=== PATIENT | female | born 1980 | race Caucasian/White ===

== ENCOUNTER 2023-11-06 00:48 | Inpatient (IN) | payer OTHER, SELFPAY ==
[2023-11-05 22:33] VITALS: BP 176/75
--- NOTE | 2023-11-05 22:40 | ED.GENMED ---
History of Present Illness
General
Chief Complaint: Skin Problem
Source: patient, records and ambulance crew
Exam Limitations: none
Time Seen by Provider: 11/05/23 22:31
Nursing documentation reviewed up to this point in time: agreed with
History of Present Illness
History of Present Illness:
43-year-old female with a past medical history as documented notable for significant vascular disease, diabetes and neuropathy, bilateral AKA who presents to the emergency department for evaluation of right stump redness and swelling. Patient
reports symptoms have been ongoing for the past 2 to 3 days. She says that tonight she was having increased pain particularly with putting weight on her right stump to pivot into the shower and finally decided to come to the emergency room to be
assessed. She says she has had identical symptoms with cellulitis in the past. She has had a poor appetite and mild nausea. No vomiting. She denies any fevers or chills. She denies any trauma. She denies any other complaints today.
Past History
Past History
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
ED Past Surgical History: Other (Left AKA, right AKA, multiple vascular interventions)
Social History
Tobacco: Smoker
Alcohol: None
Drug: None
Personal: Single
Living: alone
Employment: Disabled
Family History
Family History: Other (reviewed and noncontributory)
Review of Systems
Review of Systems
All Other Systems: ROS reviewed and negative except as documented in HPI and ROS
Constitutional: Denies fever or chills
Respiratory: Denies trouble breathing
Cardiac: Denies chest pain
ABD/GI: Reports nausea; Denies abdominal pain or vomiting
: Denies flank pain
Musculoskeletal: Reports other (Right stump redness and swelling, pain); Denies neck pain or back pain
Neurological: Denies headache
Phy Exam
Physical Exam
Physical Exam:
General: Awake, alert, oriented x3; no acute distress
Head: Normocephalic, atraumatic
Eyes: Conjunctiva normal, sclera anicteric
Throat: Airway intact, handling secretions
Neck: Trachea midline, supple without meningismus
Lungs: Breathing comfortably no distress
Heart: Regular rate
Neuro: Cranial nerves grossly intact, speech fluid
Skin: Patient has some erythema and area of purplish discoloration on the right stump which is indurated and tender to the touch although not significantly warm (actually somewhat cool to the touch); she has no pustules, wounds or drainage and no
fluctuance in this area
Extremities: Cool to the touch, bilateral AKA (amputations essentially at the proximal femur bilaterally)
Scores
Heart Failure Risk
Heart Failure Risk Score: Not Applicable
Heart Score for Chest Pain Patients
STEMI patient?: Not applicable
Withdrawal Assessment of Alcohol
Withdrawal Assessment Completed?: Not applicable
Course
Orders/Labs/Results
Orders:
Orders
11/05/23 22:38
CR Hip - RT w/wo Pel 2-3 Vw* Urgent
Comment:
Reason For Exam: RL (stump) swelling and pain
Include a pelvis x-ray?: No
11/05/23 22:45
Blood Culture Q30M
JULISA Source: Blood/Venous
Specimen Description:
11/05/23 22:47
Ketorolac [Toradol] 15 mg IV NOW STA
11/05/23 23:35
Complete Blood Count/With Diff Urgent
Comprehensive Metabolic Panel Urgent
Lactate Level [Lactic Acid] Urgent
Blood Culture Q30M
JULISA Source: Blood/Venous
Specimen Description:
11/06/23 00:32
Insulin Aspart [NOVOLOG vial] 4 units SC NOW STA
11/06/23 00:33
CeFAZolin 2 GRAM [Ancef] 2 grams in 10 ml IV NOW
11/06/23 00:38
0.9% Sodium Chloride 500 ml [Nss] 500 ml IV BOLUS
11/06/23 00:41
Admit/Transfer Patient As Directed
Co-Sign Provider:
Level of Care: Inpatient admission
Assign to:: Medical/Surgical
Physician / Group: [email or web address]
Diagnosis: stump cellulitis, Hyperglycemia
Reason for Hospitalization: stump cellulitis, Hyperglycemia
Expected length of stay greater than two midnights?: Yes
ELOS- Estimated Length of Stay in days: 3
I certify the patient meets the requirements for IP care: Yes
11/06/23 00:42
Code Status As Directed
Resuscitation Status: Full Code
11/06/23 00:45
CeFAZolin 2 GRAM [Ancef] 2 grams in 10 ml IV NOW
11/06/23 00:48
Insulin Aspart [NOVOLOG vial] 10 units SC NOW STA
Abnormal Lab Results
11/05/23
23:35
RBC 5.84 H 10^6/uL
(4.20-5.40)
Hgb 17.8 H g/dL
(12.0-16.0)
Hct 51.1 H %
(37.0-47.0)
Absolute Neuts (auto) 6.6 H 10^3/uL
(1.4-6.5)
Sodium 130 L mmol/L
(135-145)
Chloride 93 L mmol/L
(98-107)
Carbon Dioxide 31 H mmol/L
(22-30)
Glucose 429 H mg/dl
(70-99)
Lactic Acid 2.1 H mmol/L
(0.7-2.0)
Total Protein 6.0 L g/dl
(6.3-8.2)
Albumin 3.2 L g/dl
(3.5-5.0)
11/05/23 23:35
11/05/23 23:35
Vital Signs
Resp Rate: 18
Initial and Last Documented VS:
Initial Vital Signs
Temp Pulse BP Pulse Ox
37.3 C 109 176/75 94
11/05/23 22:33 11/05/23 22:33 11/05/23 22:33 11/05/23 22:33
Last Documented Vital Signs
Temp Pulse Resp BP Pulse Ox
37.3 C 109 18 176/75 94
11/05/23 22:33 11/05/23 22:33 11/06/23 00:00 11/05/23 22:33 11/05/23 22:33
MDM/Problems Addressed
Differential Diagnosis Includes:
Cellulitis, contusion, hematoma, fracture
MDM/Problems Addressed:
43-year-old female presents for evaluation of discoloration, pain on the right stump she says similar to prior infections. No trauma reported. Vital signs normal. Exam as above�while area of concern is somewhat discolored/purpleish and there is
some slight induration there is no warmth and in fact the area is quite cool to the touch and is not markedly tender, no fluctuance or collection appreciated. Really more appears consistent with a contusion and cellulitis however she says this is
identical to prior infections and denies trauma. Will check basic labs. Check an x-ray of the area. She is requesting something for pain we will provide a dose of Toradol. Reassess after the above�given her extensive vascular history and her
diabetes history would err on the side of treating with antibiotics.
Labs reviewed: CBC unremarkable, CMP shows significant hyperglycemia to 429, marginal lactate elevation of 2.1. Provided IV fluids. Will treat with some subcutaneous insulin for hyperglycemia. X-ray reviewed by me no signs of osteomyelitis or
fracture. Patient insists that this is her typical presentation with cellulitis. She certainly is high risk given her significant vascular disease and clearly poorly controlled diabetes. Will treat with IV antibiotics and admit for sugar control
and monitoring of leg pain and swelling with IV antibiotics. Discussed with hospitalist for admission.
Chronic conditions affecting care:
Vascular disease, diabetes
Acute Exacerbation and/or Progression of Chronic Illness:
Acute exacerbation of diabetes�hyperglycemia treated with subcutaneous insulin
*Radiology
Radiology exam reviewed: preliminary read by ED provider
*Pulse Oximetry
Patient hypoxic: no
*Critical Care Note
Total Time (30-74mins, 75-104mins- exclusive of procedures): Not Applicable
Data Reviewed
Review of Other/Old Records Reveals: Labs and Records
Source: patient, records and ambulance crew
Patient Management
Discussion with other providers: Hospitalist (Discussed with hospitalist)
Escalation/DeEscalation of care consider admission/obs:
Admission indicated
ED Attending Note
-
Portions of this chart may have been created with voice recognition software.� Occasional wrong word or��sound alike� substitutions may have occurred due to the inherent limitations of voice recognition software.
Discharge Plan
Departure
Patient Disposition: Admit
Date of Disposition: 11/06/23
Time of Disposition: 00:36
Admit to doctor: Joceline
Presentation/result/management discussed w/ accepting MD/DO: Hospitalist
Discharge Problem:
Cellulitis, Hyperglycemia
Interventions
Interventions:
*Risk Screen - Suicide Last Done: 11/05/23 22:33
*General Assessment Last Done: 11/05/23 22:33
*Neglect/Abuse Screening Last Done: 11/05/23 22:33
ED- Fall Risk Assessment Last Done: 11/05/23 23:37
*ED COVID-19 Vaccine History Last Done: 11/05/23 23:37
*Nursing Disposition Last Done: 11/06/23 00:47
ED-Skin Assessment Last Done: 11/05/23 23:37
[2023-11-05] MEDS: TORADOL 15 MG IV (23:48)
[2023-11-05 23:50] LABS: % Basophils 0.5 % (0-2); % Eosinophils 0.5 % (0-6); % Immature Granulocytes 0.3 % (0-0.5); % Lymphocytes 21.8 % (20.5-51.1); % Neutrophils 70.9 % (42.2-75.2); Absolute Basophils 0.1 10^3/uL (0-0.2); Absolute Eosinophils 0.1 10^3/uL (0-0.7); Absolute Monocytes 0.6 10^3/uL (0.1-0.6); Absolute Neutrophils 6.6 10^3/uL (1.4-6.5); Hematocrit 51.1 % (37.0-47.0); Hemoglobin 17.8 g/dL (12.0-16.0); Mean Corp Hgb Conc. 34.8 g/dL (33.0-37.0); Mean Corpuscular Hgb 30.5 pg (27.0-31.0); Mean Corpuscular Volume 87.5 fL (81.0-99.0); Mean Platelet Volume 9.4 fL (7.4-10.4); Nucleated Red Blood Cells % 0 %; Platelet Count 202 10^3/uL (130-400); Red Blood Cell Count 5.84 10^6/uL (4.20-5.40); Red Cell Dist. Width 13.1 % (11.5-14.5); White Blood Cell Count 9.3 10^3/uL (4.8-10.8)
[2023-11-06 00:02] LABS: Lactic Acid 2.1 mmol/L (0.7-2.0)
[2023-11-06 00:04] LABS: ALT (SGPT) 13 U/L (0-35); AST (SGOT) 19 U/L (14-36); Albumin 3.2 g/dl (3.5-5.0); Alkaline Phosphatase 74 U/L (38-126); Blood Urea Nitrogen 15 mg/dl (7-17); Calcium 9.1 mg/dl (8.4-10.2); Carbon Dioxide 31 mmol/L (22-30); Chloride 93 mmol/L (98-107); Glucose 429 mg/dl (70-99); Potassium 4.4 mmol/L (3.5-5.1); Sodium 130 mmol/L (135-145); Total Bilirubin 0.6 mg/dl (0.2-1.3); eGFR > 60.00
[2023-11-06] MEDS: NSS 500 IV (00:54)
[2023-11-06 01:30] VITALS: BMI 39.3
--- NOTE | 2023-11-06 01:30 | PTCARENOTE ---
Received pt from ED in room 2138. Patient able to transfer self from stretcher to bed. Pt with b/l AKA. R stump red/warm from cellulitis, with overall red tone to skin. AAOx3. VSS. See Assessment. Answered all admission questions. Pt states does
not have an emergency contact. Pt oriented to room, no complaints at this time, call olivier within reach.
[2023-11-06 01:41] VITALS: BP 156/78
[2023-11-06] MEDS: ANCEF 10 IV (02:45)
[2023-11-06] MEDS: ROXICODONE 5 MG PO ×4 (02:45→21:36)
--- NOTE | 2023-11-06 04:25 | HPS.HSE ---
Family Physician
-
Family Physician: Chandana Olivia
Chief Complaint
-
pain and redness of Rt stump.
History of Present Illness
43F Obese HX IDDM, b/l AKA ,severe PAD, neuraopathy pw pain and redness of Rt stump. Repots some swelling.
Onset 2 days ago. Unable to pivot on Rt stum in the shower due to pain and tenderness. Denied trauma.
HX stump cellulitis in negar past.
NEG MRSA screen inthe past
BG 430 - report missed Lantus
ROS
POS nausea and poor appetite
Denied fever , chills and rigors
No chest pain
Medical History
Past Medical History
Past Medical History: Reports COPD, CVA, HTN, NIDDM and Other (obesity )
Additional Past Medical History:
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
peripheral vascular disease
Past Surgical History: Reports Orthopedic (B/L AKAs)
Social History
Tobacco: Smoker
Alcohol: None
Personal: Single
Living: Alone
Family History
Family History: Not pertinent
Allergies / Home Medications
Allergies reflects when Allergies were last updated in [facility].
Home Medications with original date entered in [employer]
Allergy/Medication List:
Allergies
Allergy/AdvReac Type Severity Reaction Status Date / Time
No Known Allergies Allergy Verified 07/07/23 18:41
Home Medications
gabapentin 600 mg tablet (Neurontin) 600 mg PO TID Neurological Condition 30 days #90 tabs 11/30/22
atorvastatin 80 mg tablet 80 mg PO HS High cholesterol 30 days #30 tabs 04/03/23
metformin 500 mg tablet 500 mg PO BID@ Diabetes 30 days #60 tabs 04/03/23
insulin glargine 100 unit/mL (3 mL) subcutaneous pen (Lantus Solostar U-100 Insulin) 24 unit SC HS Diabetes 06/05/23
ondansetron 4 mg disintegrating tablet 4 mg PO QID PRN nausea and vomiting #20 tabs 06/20/23
pantoprazole 40 mg tablet,delayed release (Protonix) 40 mg PO DAILY #30 tabs 06/20/23
ondansetron 4 mg disintegrating tablet 4 mg PO TIDPRN PRN nausea/vomiting #12 tabs 07/07/23
Review of Systems
-
Constitutional: Reports No Symptoms
EENT: Reports No Symptoms
Respiratory: Reports No Symptoms
Cardiac: Reports No Symptoms
Abdomen/GI: Reports No Symptoms
: Reports No Symptoms
Musculoskeletal: Reports See HPI
Skin: Reports No Symptoms
Neurological: Reports No Symptoms
Endocrine: Reports No Symptoms
Hematologic/Lymphatic: Reports No Symptoms
Psych: Reports No Symptoms
Physical Exam
Vital Signs
Vital Signs
Temp Pulse Resp BP Pulse Ox
99.2 F 109 18 176/75 94
11/05/23 22:33 11/05/23 22:33 11/06/23 00:00 11/05/23 22:33 11/05/23 22:33
Physical Exam
General: Well Developed, Conversant, Obese and Other
HEENT: NormoCephalic, Anicteric and Moist mucous membranes
Respiratory: Clear; No Wheezes, Rales or Rhonchi
Cardiac: S1/S2 and Regular Rhythm
Breast: Deferred by me
GI: Soft, Non Tender, Non Distended and Normal Bowel Sounds
Rectal: Deferred by Provider
Genito-urinary: Deferred by me
Musculoskeletal: Other (warmth and erythematous Rt AKA stump with tenderness)
Neuro: AO x 3
Hematologic/Lymphatic: No Lymphadenopathy
Psych: Calm
Laboratory Results
-
Laboratory Results
Lactic Acid 2.1 mmol/L (0.7-2.0) H 11/05/23 23:35
Total Bilirubin 0.6 mg/dl (0.2-1.3) 11/05/23 23:35
AST 19 U/L (14-36) 11/05/23 23:35
ALT 13 U/L (0-35) 11/05/23 23:35
Alkaline Phosphatase 74 U/L (38-126) 11/05/23 23:35
Data Reviewed
-
Lab Data: Labs Reviewed by me
Old Records: Reviewed
Impression/Plan
-
Data
WCC 9.3
Cr 0.7
BG 430
LA 2.1
Pending complete CMP results
NEG MRSA screen 01/06/21
Last hospitalist admission:
ASSESSMENT & PLAN
Rt stump cellulitis - no known ABx allergy
Suspect evolving sepsis - sinus tachy, Lactate acidosis
Uncontrol Hyperglycemia 2/2 acute infection and missed Lantus due to not eating
HX IrDMT with PAD, Neuropathy
- BCx
- Empiric IV Ancef 2gm q8h - f/u T, WCC
- S/p NovoLog 10 unit at ER
- add ISS high
- PRN Tylenol and PO oxycodone
- Diabetic diet
DVT Px:
Code: Full code
IP MS
[2023-11-06 04:28] LABS: Glucose - Point of Care 350 mg/dl (70-99)
--- NOTE | 2023-11-06 05:05 | DOWNTIME ---
There was a [employer] [facility] Downtime on 11/06/2023 from 0111 to 11/06/2023 at 0405. Downtime documentation of patient's care, including medication administrations, has been reconciled in the electronic record per guidelines. Refer to the
patient's paper chart under the miscellaneous tab to see printed paper medication records and downtime forms.
[2023-11-06] MEDS: NOVOLOG FLEXPEN 10 UNITS SC ×3 (05:08→18:16)
[2023-11-06 05:23] VITALS: BMI 35.5
--- NOTE | 2023-11-06 05:50 | PTCARENOTE ---
Pt with blood sugar of 350. CORE MEASURES ABSTRACTOR notified. One time order 10 units of insulin ordered and given. Pt asymptomatic and resting comfortably in bed.
[2023-11-06 06:34] LABS: Hematocrit 50.7 % (37.0-47.0); Hemoglobin 17.1 g/dL (12.0-16.0); Mean Corp Hgb Conc. 33.7 g/dL (33.0-37.0); Mean Corpuscular Hgb 31.3 pg (27.0-31.0); Mean Corpuscular Volume 92.7 fL (81.0-99.0); Mean Platelet Volume 9.9 fL (7.4-10.4); Platelet Count 189 10^3/uL (130-400); Red Blood Cell Count 5.47 10^6/uL (4.20-5.40); Red Cell Dist. Width 13.1 % (11.5-14.5); White Blood Cell Count 8.5 10^3/uL (4.8-10.8)
[2023-11-06 06:56] LABS: Blood Urea Nitrogen 15 mg/dl (7-17); Carbon Dioxide 29 mmol/L (22-30); Chloride 95 mmol/L (98-107); Estimated Creatinine Clearance 79 ml/min; Glucose 357 mg/dl (70-99); Potassium 4.1 mmol/L (3.5-5.1); Sodium 130 mmol/L (135-145); eGFR > 60.00
[2023-11-06 07:19] LABS: Glucose - Point of Care 212 mg/dl (70-99)
[2023-11-06 07:45] VITALS: BP 123/66
[2023-11-06] MEDS: NOVOLOG FLEXPEN-HIGH RESISTANCE 4 UNITS SC (08:52)
[2023-11-06 08:59] LABS: Glycohemoglobin (HgbA1c) 14.9 % (4.0-5.6)
--- NOTE | 2023-11-06 09:41 | W.PN.HOSP.TC ---
Addendum entered and electronically signed by Noah Villagran DO 11/06/23 14:07:
MRI shows cellulitis of the right stump soft tissues. No drainable fluid collection. Minor degree of osteitis of the resected margin of the right femur.
ESR/CRP are normal. Clinically doubt osteomyelitis. Continue cefazolin.
Original Note:
Today's Communication/Plan
-
ESR, CRP
MRI
Continue antibiotics
Diabetes education consult
Add aspart with meals
Resume metformin, Lantus, gabapentin
Assessment / Plan
Assessment / Plan
Gen-AAOx3, NAD, obese
HEENT-NC, AT, anicteric, clear oral mm
Neck-supple
CV-reg, no M, +S1/S2
Lungs-clear B/L
Abd-soft, NT, ND
Ext-no edema
Musculoskeletal-no cyanosis, clubbing, bilateral above-knee amputation
Skin-warm and dry, right AKA stump erythema without tenderness or fluctuance
Neuro-grossly non-focal
Psych-calm, cooperative
Right AKA stump cellulitis -clinically doubt sepsis. Continue IV cefazolin. Given prior abscess, check MRI of stump. ESR, CRP. She claims it was drained in June when she was admitted to [facility]. Has not had any advanced
imaging of the stump since June.
DM2 with hyperglycemia -not in DKA. Hemoglobin A1c 14.9%. She claims she only eats 1 meal a day at home. Is on Lantus 24 units at bedtime. Not on mealtime insulin. Resume metformin. Add mealtime insulin. Consult diabetes education. Discussed
the importance of glucose control in light of her ongoing infections and risk of recurrent infection.
Pseudohyponatremia -due to hyperglycemia.
Bilateral above-knee amputation
History of stroke
Hyperlipidemia
Essential hypertension -stable.
History of pulmonary embolism
PAD
Tobacco dependence
Morbid obesity due to excess calories
Full code
Anticipated Discharge: > 48 hours
Subjective/Interval History
-
Date of Service: November 06, 2023
Patient seen and examined. Complaining of discomfort of right AKA stump.
Objective Data
-
Labs:
Laboratory Results
11/05/23 11/06/23
23:35 06:05
WBC 9.3 8.5
Hgb 17.8 H 17.1 H
Hct 51.1 H 50.7 H
Plt Count 202 189
Sodium 130 L 130 L
Potassium 4.4 4.1
Chloride 93 L 95 L
Carbon Dioxide 31 H 29
BUN 15 15
Creatinine 0.7 0.9
Glucose 429 H 357 H
Calcium 9.1 9.0
Total Bilirubin 0.6
AST 19
ALT 13
Alkaline Phosphatase 74
Vital Signs:
Vital Signs
Temp Pulse Resp BP Pulse Ox
97.8 F 78 16 123/66 96
11/06/23 07:45 11/06/23 07:45 11/06/23 07:45 11/06/23 07:45 11/06/23 07:45
Review of Systems
-
History Source: Patient
All other systems: Reviewed and negative
[2023-11-06] MEDS: GLUCOPHAGE 500 MG PO ×2 (10:38→16:00)
[2023-11-06 10:39] LABS: Erythrocyte Sed Rate 10 mm/hour (0-20)
[2023-11-06] MEDS: NEURONTIN 600 MG PO ×3 (10:39→21:36)
[2023-11-06] MEDS: ANCEF 5 IV ×2 (10:40→18:09)
--- NOTE | 2023-11-06 10:57 | CM ---
Reviewed the chart notes and spoke with the patient at the bedside. The patient resides alone in a first floor apartment. The patient has a wheelchair, shower chair, and shower grab bars. The patient has had [facility] VN in the past and has been to
[facility] and [facility]. The patient confirmed her pharmacy of choice is the [facility] [place]. continues to be available to patient/family and is monitoring medical plan for needs at discharge.
Plan: Discharge plans will depend on the patient's progress.
[2023-11-06 11:40] LABS: Glucose - Point of Care 211 mg/dl (70-99)
--- NOTE | 2023-11-06 14:08 | PN.DE.MGMTRT ---
Addendum entered and electronically signed by Dorene Obando NP 11/06/23 14:21:
Patient complained to nurse about calorie level. Based on 5' and 200 pound diet was 1600 calories. Ptient demanding 2000 calories. Explained that at 5' this would be excess calories and with A1C 14.9% would only raise calorie level to 1800
calories.
Original Note:
Insulin Management
- -
11/06/2023 Diabetes Management Consult
Patient admitted 11/05 with R stump cellulitis. Patient known to me from multiple admissions in the past. PMH includes HCL, COPD, CVA, HTN, PVD, bilateral AKA, neuropathy. Prior to admission was taking 24 units lantus @ HS with 500 mg metformin
BID. A1C is 14.9%
Dr. Villagran has ordered the hs lantus 24 units with low corrective insulin will add 10 units novolog AC.
Patient refused diabetes education. Will follow
Diabetes History
- -
Type of Diabetes: 2 requiring insulin
Pre-Admission Diabetes Regimen
11/05/23 11/06/23
23:35 06:05
Creatinine 0.7 0.9
Lab Results
Hemoglobin A1c 14.9 % (4.0-5.6) H 11/06/23 06:05
Insulin Pump Settings
IP Diabetes Regimen
11/05/23 11/06/23 11/06/23
23:35 04:25 06:05
Glucose 429 H 357 H
POC Glucose 350 H
11/06/23 11/06/23
07:18 11:39
Glucose
POC Glucose 212 H 211 H
Patient Education
[2023-11-06 15:10] VITALS: BP 142/88
[2023-11-06] MEDS: NOVOLOG FLEXPEN-LOW RESISTANCE 2 UNITS SC ×2 (15:50→18:16)
[2023-11-06] MEDS: LOVENOX 40 MG SC (18:09)
[2023-11-06 18:15] LABS: Glucose - Point of Care 200 mg/dl (70-99)
[2023-11-06 21:25] LABS: Glucose - Point of Care 127 mg/dl (70-99)
[2023-11-06] MEDS: LANTUS 0.239999999999999991 UNITS SC (21:38)
[2023-11-06 23:37] VITALS: BP 126/60
[2023-11-06] MEDS: TORADOL 15 MG IV (23:52)
[2023-11-07] MEDS: ANCEF 5 IV ×2 (01:53→10:36)
[2023-11-07] MEDS: TYLENOL 650 MG PO (04:04)
[2023-11-07 07:37] LABS: Glucose - Point of Care 262 mg/dl (70-99)
--- NOTE | 2023-11-07 07:40 | PN.DE.MGMTRT ---
Insulin Management
- -
11/06/2023 Diabetes Management Consult
Patient admitted 11/05 with R stump cellulitis. Patient known to me from multiple admissions in the past. PMH includes HCL, COPD, CVA, HTN, PVD, bilateral AKA, neuropathy. Prior to admission was taking 24 units lantus @ HS with 500 mg metformin
BID. A1C is 14.9%
Dr. Villagran has ordered the hs lantus 24 units with low corrective insulin will add 10 units novolog AC.
Patient refused diabetes education. Will follow
11/07/2023 Diabetes Management Follow up
AC novolog 10 units started with lunch; hs glucose 127. Will make no change to AC novolog. Received 24 units lantus @ HS, fasting glucose 262. Will increase hs lantus to 28 units. Will follow.
Diabetes History
- -
Type of Diabetes: 2 requiring insulin
Pre-Admission Diabetes Regimen
Lab Results
Hemoglobin A1c 14.9 % (4.0-5.6) H 11/06/23 06:05
Insulin Pump Settings
IP Diabetes Regimen
11/06/23 11/06/23 11/06/23
11:39 18:14 21:22
POC Glucose 211 H 200 H 127 H
11/07/23
07:36
POC Glucose 262 H
Meal type: Dinner
Meal type: Lunch
Meal type: Breakfast
Amount consumed: 100%
Amount consumed: 100%
Amount consumed: 100%
Patient Education
[2023-11-07 07:56] VITALS: BP 97/51
[2023-11-07] MEDS: GLUCOPHAGE 500 MG PO (09:23)
[2023-11-07] MEDS: NEURONTIN 600 MG PO (09:24)
[2023-11-07] MEDS: ROXICODONE 5 MG PO ×2 (09:26→14:22)
[2023-11-07] MEDS: NOVOLOG FLEXPEN-LOW RESISTANCE 3 UNITS SC (10:02)
[2023-11-07] MEDS: NOVOLOG FLEXPEN 10 UNITS SC ×2 (10:02→14:23)
[2023-11-07 10:26] LABS: % Basophils 0.6 % (0-2); % Eosinophils 1.1 % (0-6); % Immature Granulocytes 0.3 % (0-0.5); % Lymphocytes 27.1 % (20.5-51.1); % Monocytes 8.7 % (1.7-9.3); % Neutrophils 62.2 % (42.2-75.2); Absolute Eosinophils 0.1 10^3/uL (0-0.7); Absolute Lymphocytes 1.9 10^3/uL (1.2-3.4); Absolute Monocytes 0.6 10^3/uL (0.1-0.6); Absolute Neutrophils 4.4 10^3/uL (1.4-6.5); Hematocrit 51.1 % (37.0-47.0); Hemoglobin 17.2 g/dL (12.0-16.0); Mean Corp Hgb Conc. 33.7 g/dL (33.0-37.0); Mean Corpuscular Hgb 30.6 pg (27.0-31.0); Mean Corpuscular Volume 90.8 fL (81.0-99.0); Mean Platelet Volume 9.7 fL (7.4-10.4); Nucleated Red Blood Cells % 0 %; Platelet Count 175 10^3/uL (130-400); Red Blood Cell Count 5.63 10^6/uL (4.20-5.40); Red Cell Dist. Width 13.2 % (11.5-14.5); White Blood Cell Count 7.1 10^3/uL (4.8-10.8)
--- NOTE | 2023-11-07 11:16 | W.PN.HOSP.TC ---
Today's Communication/Plan
-
Discharge
Assessment / Plan
Assessment / Plan
Gen-AAOx3, NAD, obese
HEENT-NC, AT, anicteric, clear oral mm
Neck-supple
CV-reg, no M, +S1/S2
Lungs-clear B/L
Abd-soft, NT, ND
Ext-no edema
Musculoskeletal-no cyanosis, clubbing, bilateral above-knee amputation
Skin-warm and dry, right AKA stump erythema without tenderness or fluctuance
Neuro-grossly non-focal
Psych-calm, cooperative
Right AKA stump cellulitis -clinically doubt sepsis. Continue IV cefazolin. MRI of stump completed, no evidence of abscess or osteomyelitis. Reactive osteitis noted at the resection margin of the amputation. ESR, CRP normal. She does not use
her prosthesis at home, has not done so in several years.
Right stump erythema improved compared to yesterday. Blood cultures negative. Can convert to Keflex on discharge today.
DM2 with hyperglycemia -not in DKA. Hemoglobin A1c 14.9%. Glucose 262 this morning, received Lantus 24 units last night. Dose increased to 28 units at bedtime by diabetes CARPET INSPECTOR. Continue NovoLog 10 units AC. Will discharge on this current regimen
and follow-up with diabetes education after discharge. Follow-up with PCP.
Pseudohyponatremia -due to hyperglycemia. Labs pending for today.
Bilateral above-knee amputation
History of stroke
Hyperlipidemia
Essential hypertension -stable.
History of pulmonary embolism
PAD
Tobacco dependence
Morbid obesity due to excess calories
Full code
Dispo -medically stable for discharge today. Outpatient follow-up.
32 minutes spent in discharge process.
Anticipated Discharge: Today
Subjective/Interval History
-
Date of Service: November 07, 2023
Patient seen and examined. Feels fine, no complaints.
Objective Data
-
Labs:
Laboratory Results
11/07/23
10:18
WBC 7.1
Hgb 17.2 H
Hct 51.1 H
Plt Count 175
Sodium Pending
Potassium Pending
Chloride Pending
Carbon Dioxide Pending
BUN Pending
Creatinine Pending
Glucose Pending
Calcium Pending
Total Bilirubin Pending
AST Pending
ALT Pending
Alkaline Phosphatase Pending
Vital Signs:
Vital Signs
Temp Pulse Resp BP Pulse Ox
97.8 F 70 16 97/51 97
11/07/23 07:56 11/07/23 07:56 11/07/23 07:56 11/07/23 07:56 11/07/23 07:56
I&O
11/06/23 11/07/23 11/08/23
06:59 06:59 06:59
Intake Total 1560 / 1560
Output Total 600 / 600
Balance 960 / 960
Review of Systems
-
History Source: Patient
All other systems: Reviewed and negative
[2023-11-07 11:19] LABS: ALT (SGPT) 10 U/L (0-35); AST (SGOT) 21 U/L (14-36); Albumin 3.3 g/dl (3.5-5.0); Alkaline Phosphatase 72 U/L (38-126); Blood Urea Nitrogen 21 mg/dl (7-17); Calcium 8.6 mg/dl (8.4-10.2); Carbon Dioxide 26 mmol/L (22-30); Chloride 98 mmol/L (98-107); Estimated Creatinine Clearance 119 ml/min; Glucose 248 mg/dl (70-99); Potassium 4.9 mmol/L (3.5-5.1); Sodium 128 mmol/L (135-145); Total Bilirubin 0.5 mg/dl (0.2-1.3); Total Protein 6.1 g/dl (6.3-8.2); eGFR > 60.00
--- NOTE | 2023-11-07 11:24 | W.DS.TRANS ---
DC Summary - Maintenance Team Member
-
Discharge Instructions:
Discharge Diagnosis/Procedures Right lower extremity stump cellulitis
Diet Diabetic, Carb Controlled
Activity As tolerated
Driving Restrictions No driving
Bathing Restrictions None
Other Services VN
Instructions:
Stand-Alone Forms:
Changes to Home Medications: Yes
Discharge Medications:
DC Medications w/original date entered in [employer]
gabapentin 600 mg tablet (Neurontin) 600 mg PO TID Neurological Condition 30 days #90 tabs 11/30/22
atorvastatin 80 mg tablet 80 mg PO HS High cholesterol 30 days #30 tabs 04/03/23
metformin 500 mg tablet 500 mg PO BID@ Diabetes 30 days #60 tabs 04/03/23
ondansetron 4 mg disintegrating tablet 4 mg PO QID PRN nausea and vomiting #20 tabs 06/20/23
pantoprazole 40 mg tablet,delayed release (Protonix) 40 mg PO DAILY #30 tabs 06/20/23
ondansetron 4 mg disintegrating tablet 4 mg PO TIDPRN PRN nausea/vomiting #12 tabs 07/07/23
Insulin Glargine Lantus [Lantus] 28 units As Directed mls/hr SC HS 11/07/23
cephalexin 500 mg capsule 500 mg PO QID #30 caps 11/07/23
insulin aspart U-100 100 unit/mL (3 mL) subcutaneous pen 10 unit (0.1 mL) SC AC #15 mL 11/07/23
oxycodone 5 mg tablet 5 mg PO Q4HPRN PRN moderate pain #15 tabs 11/07/23
Home Medication Changes
Lantus dose increased to 28 units at bedtime.
Pending Results: No
--- NOTE | 2023-11-07 12:17 | CM ---
Addendum entered by Charito Cunha 11/07/23 13:55:
Per hospice community liaison, ambulance transport scheduled for 3:00 p.m., patient updated.
Original Note:
Patient seen bedside. CM reviewed IMM with patient, signed, placed in patients chart. Patient inquiring about how the appeal process works. Patient reports she is not going to appeal but requested a copy of the form. Patient confirms she will need
ambulance transportation home, patient reports she lives on the first floor of her apartment, no steps to enter, and no one will be home as she lives alone. Patient confirms address on chart. CM will continue to follow for discharge planning needs.
Plan; home by ambulance, will require ambulance transport, await time.
[2023-11-07 12:59] LABS: Glucose - Point of Care 139 mg/dl (70-99)
[2023-11-07] MEDS: NOVOLOG FLEXPEN-LOW RESISTANCE SC (14:21)
== END 2023-11-07 15:09 | disposition home or self-care (01) | DRG 603 ==
LOC: 2 NORTH 00:48
PROVIDERS: ADMITTING PHYSICIAN Internal Medicine; ATTENDING PHYSICIAN Hospitalist; EMERGENCY PHYSICIAN Emergency Medicine; FAMILY PHYSICIAN Family Medicine
DX: L03.115 Cellulitis of right lower limb (principal); E11.40 Type 2 diabetes mellitus with diabetic neuropathy, unspecified; E11.51 Type 2 diabetes mellitus with diabetic peripheral angiopathy without gangrene; F17.200 Nicotine dependence, unspecified, uncomplicated; E11.65 Type 2 diabetes mellitus with hyperglycemia; E78.5 Hyperlipidemia, unspecified; E78.00 Pure hypercholesterolemia, unspecified; E66.01 Morbid (severe) obesity due to excess calories; I10 Essential (primary) hypertension; J44.9 Chronic obstructive pulmonary disease, unspecified; H54.62 Unqualified visual loss, left eye, normal vision right eye; Z79.4 Long term (current) use of insulin; Z86.73 Personal history of transient ischemic attack (TIA), and cerebral infarction without residual deficits; Z89.612 Acquired absence of left leg above knee; Z89.611 Acquired absence of right leg above knee; Z68.39 Body mass index [BMI] 39.0-39.9, adult; Z86.711 Personal history of pulmonary embolism
CPT/HCPCS: 73502; 73720; 80048; 80053; 82962; 83036; 83605; 85025; 85027; 85652; 86140; 87040; 96374; 99285; A9575

== ENCOUNTER 2024-07-29 11:49 | Inpatient (IN) | payer OTHER, SELFPAY ==
[2024-07-29 11:52] VITALS: BP 128/73
--- NOTE | 2024-07-29 13:34 | HPS.HSE ---
Addendum entered and electronically signed by Jayson Alan MD 07/30/24 07:53:
I personally performed a history and physical exam of the patient and discussed management with the resident. I reviewed the resident's note and agree with the documented findings and plan of care HPI/CC.
Original Note:
Family Physician
-
Family Physician: Chandana Olivia
Chief Complaint
-
'pain in left ass cheek'
History of Present Illness
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 She refused care at [place], and requested
transfer to [facility] given that she follows with vascular surgeons here. Today, she is quite agitated and cursing during examination, refuses to answer many questions, or engage in productive conversation. From what I gathered, she admits
significant 10/10 pain of her left buttocks that has been there for 'more than a day,' though she will not elaborate on when she noticed it. Also reports pain in 'right stump.' She is angry at my questions and yells that she 'feels safe at home and
blah blah'. She denies fevers, chills, headaches, lightheadedness, dizziness, chest pain, shortness of breath, nausea, vomiting, abdominal pain, diarrhea, constipation. Does not know when last BM was. Tolerates PO diet.
Remainder of history obtained from review of prior records. She had a recent admission 05/2024 to [place] for right lower extremity cellulitis which was treated with linezolid/levaquin due to loss of IV access and multiple bedside debridements.
Xray reports also note possible osteomyelitis. Per [place] records, 'It is unclear if the patient finish the course of antibiotics. She has a general history of noncompliance and has been refusing some of her care due to her feeling like she
'knows her rights' to refuse.' Apparently also has history of necrotizing fasciitis and required surgery at [place]. In [place] ED for current admission, she was started on IV vancomycin for suspected sacral wound infection/cellulitis. She was
initially hypotensive though this resolved after 1L IV NS. She had no fevers or leukocytosis. Labs from [place] notable for hgb 15.2, blood glucose 529, no evidence DKA, norm beta hydroxybuterate, lactate 1.9, Cr 0.9. Her wound was described as
'extensive unstageable likely tracking wound of left gluteus' though physical exams were limited by some providers due to patient refusal.
Imaging from [place] not available for review. However reports are as follows:
CT abdomen, pelvis, LE with IV contrast 07/28/24
FINDINGS: Left gluteal inner medial aspect extensive soft tissue edema and enhancing sheets with a large soft tissue defect seen inseparable from the gluteus muscles. No obvious osteomyelitis. Evidence of left above-knee amputation. Average sized
liver showing homogenous parenchymal attenuation. No dilated intra or extrahepatic biliary tracts. Hepatic calcified granulomas. Distended gallbladder showing no radiodense calculi. No abnormal mural thickening. Clear surrounding fat planes
with no sizable collections. Normal appearance of the pancreas with clear surrounding fat planes. The spleen, adrenal glands and IVC are unremarkable. Aortoiliac atheromatous calcifications. Occluded left iliac common and external iliac artery.
Poorly opacifies proximal femoral arteries. Advise Doppler correlation. Both kidneys are of average size and showing smooth outline with preserved parenchymal thickness. No renal calculi. No hydronephrosis. A few renal hypodense cortical cysts.
Under distention of the urinary bladder showing minimal uniform mural thickening with no obvious masses. No obvious masses related to pelvic viscera. The examined ascending colon, the transverse colon, the descending colon and small bowel loops
are unremarkable. The stomach is unremarkable. No ascites or free air. No obvious pathologically enlarged lymph nodes. Anterior abdominal wall left paramidline hernia containing omental fat. Scanned osseous structures show L5 over S1
second-degree and Tero lithiasis. Scant osseous structures show no osseous destruction. Scan lung bases show no obvious abnormalities.
Left gluteal inner medial aspect extensive soft tissue edema and enhancing sheets with a large soft tissue defect seen inseparable from the gluteus muscles. No obvious osteomyelitis. Evidence of left above-knee amputation. Urinary bladder mild
mural thickening. Advise clinical and laboratory correlation to exclude the possibility of cystitis. Aortoiliac atheromatous calcifications. Occluded left iliac common and external iliac artery. Poorly opacifies proximal femoral arteries.
Advise Doppler correlation. Anterior abdominal wall left paramidline hernia containing omental fat.
Portions of this chart were created with voice recognition software.� Occasional wrong word or��sound alike� substitutions may have occurred due to the inherent limitations of voice recognition software.
Medical History
Past Medical History
Past Medical History: Reports CAD and CVA
Additional Past Medical History:
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
Patient denies PMH
Past Surgical History: Reports Other
Additional Past Surgical History:
Bilateral AKA
Patient denies other surgical history
Social History
Unable to obtain full social history at this time due to: Other (patient refuses to answer. Yells 'it's none of your business' even after explaining medical relevance to her healthcare while in hospital)
Tobacco: Smoker (per prior documentation, patient is current smoker)
Alcohol: Other (patient refuses to answer)
Drug: Other (patient refuses to answer)
Family History
Family History: Other (patient refuses to answer)
Allergies / Home Medications
Allergies reflects when Allergies were last updated in [employer].
Home Medications with original date entered in [employer]
Allergy/Medication List:
Allergies
Allergy/AdvReac Type Severity Reaction Status Date / Time
No Known Allergies Allergy Verified 07/07/23 18:41
Home Medications
gabapentin 600 mg tablet (Neurontin) 600 mg PO TID Neurological Condition 30 days #90 tabs 11/30/22
atorvastatin 80 mg tablet 80 mg PO HS High cholesterol 30 days #30 tabs 04/03/23
metformin 500 mg tablet 500 mg PO BID@08,17 Diabetes 30 days #60 tabs 04/03/23
Insulin Glargine Lantus [Lantus] 28 units As Directed mls/hr SC HS 11/07/23
cephalexin 500 mg capsule 500 mg PO QID #30 caps 11/07/23
insulin aspart U-100 100 unit/mL (3 mL) subcutaneous pen 10 unit (0.1 mL) SC AC #15 mL 11/07/23
oxycodone 5 mg tablet 5 mg PO Q4HPRN PRN moderate pain #15 tabs 11/07/23
If medication reconciliation has not been performed, why?: Other (Per reconciliation entered in chart, her medication history is above. However to me she denies any medication use including insulin and metformin.)
Review of Systems
-
Unable to obtain full review of systems at this time due to: Other (patient refuses to answer)
Physical Exam
Vital Signs
Vital Signs
Temp Pulse Resp BP Pulse Ox
97.9 F 74 18 128/73 92
07/29/24 11:52 07/29/24 11:52 07/29/24 11:52 07/29/24 11:52 07/29/24 11:52
Physical Exam
General: Well Developed, Well Nourished, Appears Chronically Ill, Obese and Other (physical exam performed with nursing assistance and sales appointment coordinator ); No Conversant (verbally abusive, cursing, screaming at all providers, refuses to answer questions)
HEENT: NormoCephalic, Anicteric and Atraumatic; No Oxygen
Respiratory: Non Labored Respirations
Cardiac: Other (refused auscultation)
Musculoskeletal: Other (s/p bilateral AKA)
Skin: Warm, Dry and Decubitus Ulcers (deep ulcer of left buttocks, appears clean ?recently debrided)
Neuro: Awake, Alert, Oriented and Nonfocal/grossly intact
Psych: Agitated
Laboratory Results
-
Pending
Data Reviewed
-
CT Scan: Report Reviewed by me
Impression/Plan
-
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 She refused care at [place], and requested
transfer to [facility] given that she follows with vascular surgeons here.
Left buttocks unstageable wound
- Examined with nursing assistance and sales appointment coordinator; removed/replaced wet packing and covered with new dressing. Wound is significant in size, estimate 5x6cm and 3cm deep. Appears to be have been recently debrided.
- Consult wound care, appreciate recs.
- Afebrile, no leukocytosis at [place].
- Repeat CBC, continue to monitor temperature curve, reassess for antibiotics if appropriate.
- Records requested from [place] per history of surgery for nec fas there
- Continue pain management: tylenol standing, oxycodone 5 for breakthrough pain,
Left aortoilliac occlusion
History of severe PAD s/p bilat AKA
- Imaging requested from [place]. Reviewed report in provider's notes and CTA showed 'Aortoiliac atheromatous calcifications. Occluded left iliac common and external iliac artery.'
- Consult vascular surgery, apprecaite recs.
- Continue heparin drip
DM2
- Patient denies history of diabetes and insulin requirements
- Check A1C, POC BG AC
- Insulin sliding scale, diabetic diet
- Consult community nutrition educator, appreciate recs.
?Adjustment disorder
- Patient has documented history of being verbally abusive towards providers, which I also observed on admission
- Will consult psychiatry, appreciate evaluation and recommendations
Hyperlipidemia- continue atorvastatin
Code status: refuses to answer, will reassess tomorrow
VTE ppx: heparin gtt
Diet: Diabetic
Dispo planning: TBD
--- NOTE | 2024-07-29 13:43 | W.PN.UPDATE ---
Update Note
Progress Note Update
I personally performed a history and physical exam of the patient and discussed management with the resident. I reviewed the resident's note and agree with the documented findings and plan of care HPI/CC.
Patient interviewed, seen, examined with nurse roller printing supervisor Joaquina Villaseñor present during the entirety of the interview and physical exam
Patient presents as a direct transfer at her request from [facility] where she had been admitted with concerns for worsening left buttock wound and left aortoiliac occlusion. Currently denies chest pain, shortness of breath, abdominal pain.
She is very emotional and tearful regarding the amount of time she has been in hospitals recently.
128/73, 74, 18, 97.9 F, 92% RA
Gen: NAD, AAOx3, appears chronically ill.
Eyes: EOMI, PERRLA, no scleral icterus.
Neck: supple.
CV: RRR, +S1/S2, no m/r/g.
Resp: CTAB, no rales, wheezes, or rhonchi.
Abd: +BS, soft, NT, ND
Skin: Left buttock with clean dry and intact dressing. Around the dressing there is not evidence of cellulitis.
Neuro: CN 2-12 intact, non-focal.
Psych: Angry and tearful
Left aortoiliac occlusion, PAD:
-h/o B/L AKAs
-We will need to obtain the imaging disc from [facility]. I did discuss the case over the phone with Dr. Stevens at [facility]. He stated that the patient had had a CT angiogram of the abdomen pelvis showing left aortoiliac occlusion.
-Initiate heparin drip
-Consult vascular surgery and wound care
-CBC, CMP, magnesium, INR, PTT ordered
-pain control with opioid analgesics
DM2:
-Patient states that she does not want to be on insulin
-check hemoglobin A1c. Moderate resistance sliding scale insulin, diabetic diet.
-on prior documentation pt was on Lantus 28U HS and 10U premeal Novolog. Will order, hopefully pt is agreeable.
-hold metformin for now in case patient needs studies with contrast
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
Will request records from [facility] as well as it is reported the patient had surgery for necrotizing fasciitis there.
[2024-07-29 14:05] LABS: % Basophils 0.7 % (0-2); % Immature Granulocytes 0.3 % (0-0.5); % Monocytes 4.4 % (1.7-9.3); % Neutrophils 66.6 % (42.2-75.2); Absolute Basophils 0.1 10^3/uL (0-0.2); Absolute Eosinophils 0.1 10^3/uL (0-0.7); Absolute Lymphocytes 1.8 10^3/uL (1.2-3.4); Absolute Monocytes 0.3 10^3/uL (0.1-0.6); Absolute Neutrophils 4.7 10^3/uL (1.4-6.5); Hematocrit 44.3 % (37.0-47.0); Hematocrit 44.4 % (37.0-47.0); Hemoglobin 14.7 g/dL (12.0-16.0); Mean Corp Hgb Conc. 33.1 g/dL (33.0-37.0); Mean Corp Hgb Conc. 33.2 g/dL (33.0-37.0); Mean Corpuscular Hgb 30.2 pg (27.0-31.0); Mean Corpuscular Hgb 30.6 pg (27.0-31.0); Mean Corpuscular Volume 92.5 fL (81.0-99.0); Mean Platelet Volume 9.3 fL (7.4-10.4); Mean Platelet Volume 9.8 fL (7.4-10.4); Nucleated Red Blood Cells % 0 %; Platelet Count 250 10^3/uL (130-400); Platelet Count 268 10^3/uL (130-400); Red Blood Cell Count 4.87 10^6/uL (4.20-5.40); Red Cell Dist. Width 13.7 % (11.5-14.5); Red Cell Dist. Width 13.8 % (11.5-14.5); White Blood Cell Count 6.7 10^3/uL (4.8-10.8)
[2024-07-29 14:08] LABS: Glucose - Point of Care 294 mg/dl (70-99)
[2024-07-29] MEDS: ROXICODONE 5 MG PO ×2 (14:10→20:16)
[2024-07-29 14:31] LABS: Glycohemoglobin (HgbA1c) 12.2 % (4.0-5.6)
--- NOTE | 2024-07-29 14:34 | CM ---
associate program manager reviewed patient's chart and met with patient, patient was just transferred to [facility] from [facility]. Per patient she was being evaluated at [facility] when someone mentioned surgery and patient insisted that
she was transferred to [facility]. Patient with bilateral AKA's, patient states she still lives alone in an apartment, patient reports that she is independent with her w/c, has shower Chair. Patient has had [facility] till
07/07/24 when she was discharged from [facility] due to non compliance.
PCP: Dr. Chandana Olivia
[facility].
Plan; To follow and assist with discharge planning.
--- NOTE | 2024-07-29 15:08 | CON.MD ---
Consultation - Medical
-
44 yr old F with PMH of DVT/PE not on anticoagulation, CVA, severe PAD s/p bilateral AKA, type 2 diabetes, hyperlipidemia who initially presented to [facility] ED 07/27/24 for worsening left buttocks pain due to wound (5x6cm & 3cm deep). As per
report, pt refused care at [facility] & requested transfer to [facility] given that she follows with vascular surgeons here. Psychiatry was consulted due to significant irritability as this was impeding communication - pt has a history of
being significantly irritable with staff and psychiatry had previously been consulted for similar reasons 3-4 yrs ago.
Pt was notably upset when I entered - she did not want to engage in an interview. Pt said 'I'm not depressed, I'm not suicidal, I don't want any of your meds so please leave'. It seems she still remembers psychiatry being consulted few years ago and
is upset that seroquel had been recommended at the time. I attempted to explain why I was there and that I simply wanted to briefly talk, but pt refused. To note, another physician entered while I was present and pt's demeanor was quite different -
it seems ths is a physician known to her and trusted by her, which was evident by her more pleasant approach. I suspect pt has a trauma history of some sort as she is hypervigilant and reactive mostly to staff she does not know and/or trust -
observed pt interacting with nursing staff and she appeared significantly more calm and interactive there as well. She has been agreeable to treatment thus far and although irritable, is able to meaningfully engage in her hospital care. Is not open
to any psychiatric medication changes or adjustments.
Hx of haldol, seroquel, valium, cymbalta, gabapentin,
Past psych- history of depression and likely PTSD (as per prior eval)
SH: Denies significant social or family supports (as per prior eval)
PTSD as per hx
MSE: not cooperative,speech is minimal and loud at times,mood is annoyed, affect is ,irritable, thought process is linear, thought content: deniesSI/HI/AVH/delusions. AAOx3. Memory not formally tested. Insight/judgement fair (though poor to some
degree regarding distrust of others, in particular medical specialist)
Pt is agreeable to tx and able to meaningfully discuss her tx thus far. Is not open to psychiatric eval at this time and does not demonstrate any need for acute or involuntary psychiatric intervention at this time.
Psychiatry will sign off, if anything changes please call us
--- NOTE | 2024-07-29 15:35 | WOUNDNOTE ---
Addendum entered by Amandeep Benjamin RN 08/06/24 07:46:
Correction: LEFT BUTTOCK/ISCHIUM, NOT RIGHT BUTTOCK
Original Note:
RIGHT BUTTOCK
--- NOTE | 2024-07-29 15:43 | WOUNDNOTE ---
[facility] RN note: Patient admitted with left buttock wound and left aortoiliac occlusion.
See H&P for complete history.
PMH: DM 2 (A1c 12.2) CAD, smoker, HTN, bilateral AKA, ischemic strokes, DVT,
Wound Location and type/assessment: Patient admitted with worsening left buttock. Per chart review wound likely the result of aortoiliac occlusion. The base of wound is pink, minimal drainage noted. Patient left AKA with dry, narcotic appearing
stump. Patient shouting at staff during assessment.
Pressure redistribution devices in place: Patient refused air overlay or any other off-loading suggestions.
Plan: MIGUELINA Ram present during assessment and assisted wound care team in providing care to left wound. Left buttock wound loosely packed with saline gauze and covered with foam dressing. Left AKA stump WEB OPERATIONS MANAGER. RN Will given update. Will confirm orders
with hospitalist. Updated care plan and will follow as needed.
--- NOTE | 2024-07-29 16:15 | CON.VAS ---
Consultation
Consultation Request
Date/Time Consultation Performed: 07/29/24
Requesting Provider: Hospitalist
Performing Provider: Irina Quevedo, PLANING MACHINE OPERATOR-C for Obdulio Hernadez MD
Reason for Consultation: Left buttocks abscess
Medical History
-
Chief Complaint: Left buttocks abscess
History of Present Illness:
This is a 44-year-old female with significant past medical history for coronary artery disease, diabetes, stroke, and peripheral arterial disease who presented as a transfer from [facility] to [place] with reports of upper thigh
and buttocks abscess. Patient is well-known to our service for multiple vascular surgical interventions, which are listed below, but was recently lost to follow-up.Per patient she was initially admitted to [place] about a month ago with a wound
in her left buttock. She and her sister have been managing this with local wound care themselves. However, she ended up at [facility] with worsening, they noted to her that it was gangrenous and debrided extensively. At some point she
ended up at [facility] and then requested to be transferred here. From report we noted that there was a report of occlusion of the left iliac or inflow system. She notes that she had a ultrasound that demonstrated that. She has no current
pain.
Vascular Surgical History:
11/22/2019- Right lower extremity arteriogram with third order catheterization. Balloon angioplasty of popliteal artery with a 5 x 40 balloon. Right 1st toe debridement. Dr. Jessica Givens
01/07/2020- Right lower extremity arteriogram. Intravascular ultrasound assessment (IVUS) of SFA/popliteal artery. Primary stent placement with self expanding stents overlapping 6 mm x 14 cm and 6 mm x 4 cm Zilver Nitinol self expanding nondrug
eluting stents right popliteal artery and SFA. Left femoral angiogram. Dr. Obdulio Hernadez
04/08/2020- Diagnostic aortobiiliac arteriogram. Diagnostic right lower extremity arteriogram. Dr. Niles Lal III
04/17/2020- Right [id number] amputation. Dr. Obdulio Hernadez
12/23/2020- Diagnostic aortobiiliac arteriogram. Diagnostic left lower extremity arteriogram. Balloon angioplasty and stenting of left popliteal and superficial femoral arteries (6 mm x 140 mm Zilver PTX; 6 mm x 140 mm Zilver PTX). Balloon
angioplasty and stenting of left common iliac artery (8 mm x 37 mm Express LD). Selected catheterization of left distal posterior tibial artery with direct injection of 5 mg tPA into the foot. Selected catheterization of left distal anterior tibial
artery with direct injection of 5 mg tPA into the foot. Dr. Niles Lal III
01/01/2021- Left lower extremity thrombectomy via below knee cutdown and SFA exposure. [place] left great saphenous vein. Left SFA to below knee popliteal bypass with reversed ipsilateral great saphenous vein. Posterior tibial exposure behind the
ankle for thrombectomy. Four-compartment fasciotomy. Dr. Charito Stephen
01/04/2021- Left femoral/profunda femoris thromboendarterectomy with vein patch angioplasty. Left above knee amputation. Dr. Obdulio Hernadez
01/08/2021- Left AKA stump and groin wound washout. Profunda, common femoral and external iliac artery rethrombectomy. Left lower extremity angiogram. Balloon angioplasty of the left common iliac artery stent with a 4 x 40 balloon. 9 x 60 Zilver
stent placement into the left external iliac artery. Post stent deployment balloon angioplasty with 8 x 40 balloon. Vacuum-assisted device closure of both the groin and stump wounds. Dr. Jessica Givens
01/17/2021- Sharp excisional debridement of left groin wound including skin and subcutaneous tissue (wound dimensions 15 cm x 8 cm. Examination of left above-knee amputation stump wound under anesthesia. Dr. Niles Lal III
01/20/2021- Revision/proximalization of left above-knee amputation. Sharp excisional debridement of left thigh wound including skin and subcutaneous tissue (wound dimensions 13 cm x 8.5 cm). Placement of VAC dressing to left groin and thigh wounds.
Dr. Niles Lal III
Past Medical History
Past Medical History: CAD, CVA, IDDM and Other (DVT/PE, PAD, hyperlipidemia )
Past Surgical History: Other (See above for vascular surgical history)
Social History
Tobacco: Smoker
Allergies / Home Medications
Allergy/AdvReac Type Severity Reaction Status Date / Time
No Known Allergies Allergy Verified 07/07/23 18:41
�Medication �Instructions �Recorded �Confirmed �Type
gabapentin 600 mg tablet 600 mg PO TID Neurological 11/30/22 07/29/24 Rx
(Neurontin) Condition 30 days #90 tabs
atorvastatin 80 mg tablet 80 mg PO HS High cholesterol 30 04/03/23 07/29/24 Rx
days #30 tabs
metformin 500 mg tablet 500 mg PO BID@ Diabetes 30 04/03/23 07/29/24 Rx
days #60 tabs
Insulin Glargine Lantus As Directed mls/hr SC HS 11/07/23 07/29/24 Rx
[Lantus] 28 units
cephalexin 500 mg capsule 500 mg PO QID #30 caps 11/07/23 07/29/24 Rx
insulin aspart U-100 100 unit/mL 10 unit (0.1 mL) SC AC #15 mL 11/07/23 07/29/24 Rx
(3 mL) subcutaneous pen
oxycodone 5 mg tablet 5 mg PO Q4HPRN PRN moderate pain 11/07/23 07/29/24 Rx
#15 tabs
Review of Systems
-
History Source: Patient
Constitutional: Reports No Symptoms
EENT: Reports No Symptoms
Respiratory: Reports No Symptoms
Cardiac: Reports No Symptoms
Abdomen/GI: Reports No Symptoms
: Reports No Symptoms
Musculoskeletal: Reports No Symptoms
Skin: Reports Other (Ongoing left buttock abscess)
Neurological: Reports No Symptoms
Endocrine: Reports No Symptoms
Physical Exam
Vital Signs
Temp Pulse Resp BP Pulse Ox
97.9 F 74 18 128/73 92
07/29/24 11:52 07/29/24 11:52 07/29/24 11:52 07/29/24 11:52 07/29/24 11:52
Lab Results
07/29/24 13:57
Physical Exam
General: No Apparent Distress and Comfortable
HEENT: Normocephalic, Anicteric and Atraumatic
Respiratory: Non Labored Respirations
Cardiac: Negative JVD
GI: Soft, Non Tender and Non Distended
Musculoskeletal: No Edema and Other (Bilateral AKA stump CDI no evidence of open wound)
Skin: Warm and Other (Large right buttocks abscess with evidence of red granulation tissue. It is adjacent to the rectum and I cannot tell if there is any proximity/fistulous connection.)
Neuro: AO x 3
Assessment / Plan
-
Assessment: 44-year-old female with left buttock wound and reports of occlusion of the left iliac or inflow system
Plan:
The wound does not appear ischemic currently. There appears to be excellent granulation base. It is very moderate depth. There are concerns with wound and proximity to rectum. We will obtain a CT angiogram of the abdomen/pelvis to assess for
patency of her inflow to assess for adequate perfusion. Also recommend colorectal surgery consultation. Would recommend wound care team evaluation.
I performed this shared service with the attending. I evaluated the patient [id number] and have entered clinical documentation as shown in the encounter note. I performed the following component(s):�history and physical exam. Note that medical
decision making is not final until attested by vascular attending.
[2024-07-29 16:59] LABS: Glucose - Point of Care 350 mg/dl (70-99)
[2024-07-29 17:12] LABS: ALT (SGPT) 11 U/L (0-35); AST (SGOT) 17 U/L (14-36); Albumin 3.2 g/dl (3.5-5.0); Alkaline Phosphatase 83 U/L (38-126); Blood Urea Nitrogen 21 mg/dl (7-17); Calcium 8.8 mg/dl (8.4-10.2); Carbon Dioxide 28 mmol/L (22-30); Chloride 94 mmol/L (98-107); Glucose 314 mg/dl (70-99); Magnesium 1.7 mg/dl (1.6-2.3); Potassium 5.5 mmol/L (3.5-5.1); Sodium 132 mmol/L (135-145); Total Bilirubin 0.3 mg/dl (0.2-1.3); Total Protein 6.4 g/dl (6.3-8.2); eGFR > 60.00
--- NOTE | 2024-07-29 17:13 | W.PN.UPDATE ---
Update Note
Progress Note Update
Seen and examined. Well-known to the vascular service based on multiple bilateral lower extremity revascularizations dating back about 3 or 4 years ago and prior. Subsequently patient required bilateral above-knee amputations. Complex healing but
she ended up healing both of those. As noted in the charting she has extensive medical history. She was transferred here from [facility]. Per patient she was initially admitted to [place] about a month ago with a wound in her left
buttock. She and her sister have been managing this with local wound care themselves. However, she ended up at [facility] with worsening, they noted to her that it was gangrenous and debrided extensively. At some point she ended up at
[facility] and then requested to be transferred here. From report we noted that there was a report of occlusion of the left iliac or inflow system. She notes that she had a ultrasound that demonstrated that. She has no current pain. On
exam/she is awake and alert. Abdomen is soft. Left buttock wound is moderate depth and moderate-sized. Excellent red granulation tissue seen. It is adjacent to the rectum and I cannot tell if there is any proximity/fistulous connection (though
seems less likely based on the fact that there is no significant drainage). I difficulty palpating femoral pulses bilaterally, but she was uncomfortable with the femoral pulse exam. (Sensitivity).
I reviewed prior operative notes as well as CT scan from 01/16/2021. At that time she had left iliac stents that were patent. Has significant internal iliac artery disease bilaterally. And a femoral endarterectomy/profundoplasty site in the left
groin was patent at that time.
Plan/left buttock wound. The wound does not appear ischemic currently. There appears to be excellent granulation base. It is very moderate depth. I do have some concerns about proximity to rectum. Will obtain a CT angiogram of the
abdomen/pelvis to assess for patency of her inflow to assess for adequate perfusion. Likely would favor colorectal surgery consultation, I spoke to Dr. Rose over the phone just now. He likely would recommend an MRI of the pelvis to assess for
any fistula. They will happily see the patient. Will consult them tomorrow (nonurgent). May end up needing plastic surgery evaluation as well. Would recommend wound care team evaluation.
[2024-07-29 17:19] LABS: INR 0.95; PT 13.2 Sec (11.4-14.6)
[2024-07-29 17:20] LABS: APTT 27.1 Sec (23.4-35.0)
[2024-07-29] MEDS: NOVOLOG FLEXPEN-MODERATE RESISTANCE SC (18:54)
[2024-07-29] MEDS: NEURONTIN PO (18:54)
[2024-07-29] MEDS: TYLENOL PO (18:55)
--- NOTE | 2024-07-29 19:00 | PTCARENOTE ---
Pt received from day shift RN. Pt in room yelling about eating 'a late lunch' and presented extremely agitated about it. Pt door closed to help her calm down. I preceded with another RN, Kelvin, and 1 security personnel into the room about 10 minutes
later. Pt still visibly very angry but was able to be calmed through verbal de-escalation. Pt AAOX3 and VVS. Pt bed in lowest position and call olivier within reach. Pt educated ad operations associate olivier usage, pt relays understanding and cooperation. Will continue
with current plan of care.
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
[2024-07-29 21:24] LABS: Glucose - Point of Care 373 mg/dl (70-99)
[2024-07-29] MEDS: NEURONTIN 600 MG PO (21:27)
[2024-07-29] MEDS: LIPITOR 80 MG PO (21:32)
[2024-07-29] MEDS: HEPARIN 25000 UNITS/250 ML IV (23:19)
[2024-07-29] MEDS: MORPHINE SULFATE 2 MG IV (23:19)
[2024-07-29 23:30] VITALS: BP 141/90
[2024-07-30] MEDS: TYLENOL PO ×2 (00:23→05:37)
[2024-07-30] MEDS: TYLENOL 650 MG PO ×3 (05:45→18:03)
[2024-07-30 06:34] LABS: APTT 39.4 Sec (23.4-35.0)
[2024-07-30] MEDS: HEPARIN 5400 UNITS IV (07:06)
[2024-07-30 07:30] VITALS: BP 125/105
[2024-07-30] MEDS: NOVOLOG FLEXPEN-MODERATE RESISTANCE SC ×2 (07:30→18:04)
--- NOTE | 2024-07-30 07:36 | W.PN.UPDATE ---
Update Note
Progress Note Update
CT angiogram reviewed. Complete occlusion of entire left iliac system. Left common femoral/SFA and profundus are all occluded. Right iliac system patent, but there is occlusion of the common femoral, proximal SFA and profunda. Right internal
iliac artery is patent and there is patent flow from the common femoral into the right internal iliac artery. There is some calcified plaque but no severe stenosis. On the left side the internal iliac artery appears chronically occluded. The
distal gluteal branches appear potentially patent. Unfortunately there is really no revascularizable targets here. With chronic occlusions now of the entire left iliac system and the femoral bifurcation, there is no distal target. In addition she
has patent flow into the right internal iliac artery but there is no distal target in the right system otherwise. Recommend wound care. Per my discussion with colorectal surgery yesterday, recommend MRI pelvis to assess for any fistulous
connection of wound to rectum. Colorectal surgery consultation. Unfortunately nothing else here I can offer from a vascular surgical perspective.
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
[2024-07-30 08:25] LABS: Blood Urea Nitrogen 19 mg/dl (7-17); Calcium 8.7 mg/dl (8.4-10.2); Carbon Dioxide 32 mmol/L (22-30); Chloride 93 mmol/L (98-107); Estimated Creatinine Clearance 73 ml/min; Glucose 344 mg/dl (70-99); Potassium 4.7 mmol/L (3.5-5.1); Sodium 132 mmol/L (135-145); eGFR > 60.00
--- NOTE | 2024-07-30 08:43 | PTCARENOTE ---
patient refused am temperature. RN notified.
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
[2024-07-30] MEDS: ROXICODONE PO (09:50)
[2024-07-30] MEDS: NEURONTIN 600 MG PO ×3 (09:51→22:21)
[2024-07-30] MEDS: PROTONIX PO ×2 (09:51→10:01)
--- NOTE | 2024-07-30 09:59 | W.PN.UPDATE ---
Addendum entered and electronically signed by Jayson Alan MD 07/30/24 13:46:
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
Original Note:
Update Note
Progress Note Update
I personally performed a history and physical exam of the patient and discussed management with the resident. I reviewed the resident's note and agree with the documented findings and plan of care HPI/CC.
Patient interviewed, seen, examined with Dr. Tonya Reese present during the entirety of the interview and physical exam.
Gen: NAD, AAOx3, appears chronically ill.
Eyes: EOMI (note slight lateral deviation L eye), PERRLA, no scleral icterus.
Neck: supple.
CV: RRR, +S1/S2, no m/r/g.
Resp: CTAB, no rales, wheezes, or rhonchi.
Neuro: L facial droop
Psych: Angry and tearful
CT A/P:
1. CHRONIC COMPLETE OCCLUSION of LEFT COMMON ILIAC and EXTERNAL ILIAC ARTERY STENTS.
2. Complete occlusion of the left common femoral, proximal superficial femoral, and proximal profundus femoral arteries.
3. Complete occlusion of the right common femoral, proximal superficial femoral arteries, and profundus femoral arteries with reconstitution of the right profundus femoral artery.
4. Severe greater than 70% diameter stenosis of the origin of the inferior mesenteric artery.
5. Severe atherosclerotic plaque in the infrarenal abdominal aorta.
6. LARGE 6.4 cm SOFT TISSUE WOUND in the LEFT INFEROMEDIAL BUTTOCK extending deep into the left adductor muscle compartment and nearly to the level of the left ischial tuberosity. Severe surrounding cellulitis.
7. Severe chronic discogenic degenerative disease at L5/S1.
8. Grade 2 anterolisthesis of L5 on S1 secondary to bilateral L5 pars interarticularis spondylolysis.
9. Multiple calcified hepatic granulomas.
10. Interval enlargement of a 1.5 cm left retroperitoneal lymph node.
11. Retained contrast material in the kidneys and urinary bladder with suggestion of renal insufficiency.
12. Mild splenomegaly.
13. Moderate size left anterior abdominal wall fat-containing hernia.
Left aortoiliac occlusion, PAD:
-h/o B/L AKAs
-CT A/P above
-appreciate vascular, no intervention possible L iliac system
-currently on heparin drip
-wound care
-CBC, CMP, magnesium, INR, PTT ordered
-pain control with opioid analgesics
-c/s CRS regarding concern for rectocutaneous fistula. Check MRI pelvis.
DM2:
-a1c 12.2%
-cont with Lantus 28U daily and 10U premeal Novolog.
-SSI/accuchecks/diabetic diet.
-holding home metformin
-c/s nutrition educator
Other problems:
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
h/o CVA: currently on heparin gtt, cont statin
Mood lability, likely mood disorder: c/s psych
Total time spent on today's encounter was 50 minutes which included time spent in counseling the patient/family regarding diagnosis and treatment plan as listed above, goals of care, and symptom management. Case was discussed with nursing staff,
specialists, and care coordinators/case management. All labs and imaging personally reviewed by me. Remainder the time spent in detailed review of previous records, lab data, imaging, and other medical provider documentation.
--- NOTE | 2024-07-30 10:25 | W.PN.HOSP.TC ---
Today's Communication/Plan
-
MRI, colorectal surgery consult; psychiatry consult
Assessment / Plan
Assessment / Plan
4yo F with PMH DVT/PE not on anticoagulation, CVA, severe PAD s/p bilateral AKA, type 2 diabetes, tobacco use, hyperlipidemia who presented to [facility] ED 07/27/24 for worsening left buttocks pain. She refused care at [facility], and requested
transfer to [facility] given that she follows with vascular surgeons here.
Left buttocks unstageable wound
- Examined with nursing assistance and thread milling machine set up operator on admission; removed/replaced wet packing and covered with new dressing. Wound is significant in size, estimate 5x6cm and 3cm deep. Clean, no significant drainage.
- Consult wound care, appreciate recs.
- Afebrile, no leukocytosis.
- Repeat CBC, continue to monitor temperature curve, reassess for antibiotics if appropriate.
- Records requested from [facility] per history of surgery for gangrene there
- Continue pain management: tylenol standing (patient has been refusing), oxycodone 5 for breakthrough pain (patient has been refusing), will try PO dilaudid today.
- Will obtain MRI for further evaluation and assess for fistulous connection to rectum. Colorectal surgery consulted, appreciate recs.
Left aortoilliac occlusion
History of severe PAD s/p bilat AKA
- Imaging requested from [facility]. Reviewed report in provider's notes and CTA showed 'Aortoiliac atheromatous calcifications. Occluded left iliac common and external iliac artery.'
- CTA 07/29 at confirms chronic complete occlusions on left and right side, stenosis, atherosclerotic plaque.
- Consult vascular surgery, apprecaite recs. Per vascular review of CTA here, limited intervention available from vasc surg perspective.
- Continue heparin drip
DM2
- Patient denies history of diabetes and insulin requirements
- A1C 12.2%, slightly improved from October.
- Accuchecks, insulin sliding scale, diabetic diet.
- Continue lantus 28u and novolog 10u with meals from prior to admission.
- Consult continuity clerk, appreciate recs.
?Adjustment disorder, mood lability
- Patient has documented history of being verbally abusive towards providers, refusing care, etc.
- Will consult psychiatry, appreciate evaluation and recommendations
- Patient agreeable with psychiatry consult
Hyperlipidemia- continue atorvastatin
Code status: full; does not want family involved in any decisions regarding her healthcare
VTE ppx: heparin gtt
Diet: Diabetic
Dispo planning: TBD
Anticipated Discharge: > 48 hours
Subjective/Interval History
-
Date of Service: July 30, 2024
Since yesterday she had several issues with yelling, refusing care, code purple. This AM she complains of pain in left buttocks that has been there for months. She says oxycodone took the edge off, but has been refusing it because it does not help
enough. She denies headache, lightheadedness, dizziness, chest pain, shortness of breath, nausea, vomiting, diarrhea, constipation. Tolerating p.o. diet. Nonambulatory due to bilateral AKA.
Objective Data
-
Labs:
Laboratory Results
07/30/24 07/30/24 07/30/24
05:53 07:58 13:00
APTT 39.4 H Pending
Sodium 132 L
Potassium 4.7
Chloride 93 L
Carbon Dioxide 32 H
BUN 19 H
Creatinine 0.8
Glucose 344 H
Calcium 8.7
Vital Signs:
Vital Signs
Temp Pulse Resp BP Pulse Ox
98.2 F 72 18 125/105 94
07/29/24 23:30 07/30/24 07:30 07/30/24 07:30 07/30/24 07:30 07/30/24 07:30
I&O
11/13/24 11/14/24 11/15/24
06:59 06:59 06:59
Intake Total 1104 / 1104
Balance 1104 / 1104
Review of Systems
-
History Source: Patient (see subjective)
Physical Exam
-
General: Well Nourished and Appears Chronically Ill; Negative Conversant (cursing and yelling, refuses to answer some questions)
HEENT: Normocephalic and Atraumatic
Respiratory: Clear to Auscultation and Non Labored Respirations
Cardiac: Regular Rhythm and S1/S2
GI: Soft, Nontender, Nondistended and Normal Bowel Sounds
Musculoskeletal: No Edema (upper extremities) and Other (s/p bilateral AKA)
Skin: Warm, Dry and Decubitus Ulcers (left buttocks)
Neuro: Awake, Alert, Oriented and Nonfocal/Grossly Intact
Psych: Agitated
Data Reviewed
-
CT Scan: Image personally visualized and interpreted and Report Reviewed by me
Labs: Labs Reviewed by me
Old Records: Reviewed
[2024-07-30] MEDS: DILAUDID 2 MG PO ×2 (10:43→17:26)
[2024-07-30 11:53] VITALS: BMI 26.5
[2024-07-30 12:30] LABS: Glucose - Point of Care 403 mg/dl (70-99)
--- NOTE | 2024-07-30 12:33 | CON.CRS ---
Consultation
-
Date/Time Consultation Requested: 07/30/2024, 7:45
Date/Time Consultation Performed: 07/30/2024, 12:30
Requesting Provider: Dr. Jayson Alan
Performing Provider: Dr. Booker Ellis
Reason for Consultation: air tracking in wound
Medical History
-
Chief Complaint: left buttock wound
History of Present Illness:
44-year-old female presents as a transfer to [facility] yesterday from [facility]. The patient has a significant past medical history of DVT and PE, CVA, bilateral AKA, type 2 diabetes and a left buttocks wound. Per records, she had
refused care at [facility] and was asked to be transferred to [place] due to her following with her vascular surgeons at our hospital. Per records, she was started on vancomycin IV due to a suspected sacral wound infection and cellulitis. She was
also apparently hypotensive and got a liter of IV fluids. CT of the abdomen and pelvis was performed in [place] (no report available) which showed left gluteal intermedial aspect with extensive soft tissue edema enhancing sheets with a large soft
tissue defect inseparable from the gluteus muscles. She has been seen by Dr. Hernadez during this hospitalization. Unfortunately there is nothing he could offer from a vascular perspective given the extent of her disease. There was concern for a
fistulous connection of the wound to the rectum given air noted on CT.
The patient states that she was operated on by Dr. Peters at [facility] months ago. She saw him in follow-up on July 08 and he was pleased with the healing of the wound. She has been taking care of it at home with her sister. She denies
any purulent discharge other than normal serous discharge. She is afebrile during admission. Her white count is 6.7. We have been consulted for further surgical opinion.
Past Medical History
Past Medical History: Other (DVT/PE not on anticoagulation, CVA, severe PAD s/p bilateral AKA, type 2 diabetes, tobacco use, hyperlipidemia)
Past Surgical History: Other (Bilateral AKA, recent left gluteal wound debridement by Dr. Peters)
Social History
Tobacco: Smoker
Family History
Family History: Reviewed & Not Pertinent
Allergies / Home Medications
Allergy/AdvReac Type Severity Reaction Status Date / Time
No Known Allergies Allergy Verified 07/07/23 18:41
�Medication �Instructions �Recorded �Confirmed �Type
gabapentin 600 mg tablet 600 mg PO TID Neurological 11/30/22 07/29/24 Rx
(Neurontin) Condition 30 days #90 tabs
atorvastatin 80 mg tablet 80 mg PO HS High cholesterol 30 04/03/23 07/29/24 Rx
days #30 tabs
metformin 500 mg tablet 500 mg PO BID@ Diabetes 30 04/03/23 07/29/24 Rx
days #60 tabs
Insulin Glargine Lantus As Directed mls/hr SC HS 11/07/23 07/29/24 Rx
[Lantus] 28 units
cephalexin 500 mg capsule 500 mg PO QID #30 caps 11/07/23 07/29/24 Rx
insulin aspart U-100 100 unit/mL 10 unit (0.1 mL) SC AC #15 mL 11/07/23 07/29/24 Rx
(3 mL) subcutaneous pen
oxycodone 5 mg tablet 5 mg PO Q4HPRN PRN moderate pain 11/07/23 07/29/24 Rx
#15 tabs
Review of Systems
-
History Source: Patient
All other systems: Negative unless noted
A 10 point review of systems was completed, and was negative except as per HPI.
Physical Exam
Vital Signs
Temp 98.2 F 07/29/24 23:30
Pulse 72 07/30/24 07:30
Resp Rate 18 07/30/24 07:30
Blood pressure 125/105 07/30/24 07:30
SaO2 94 07/30/24 07:30
1107/30/24 07/31/24
06:59 06:59 06:59
Actual Weight 67.812 kg
Lab Results / Allergies
07/29/24 13:57
07/30/24 07:58
WBC 6.7 10^3/uL (4.8-10.8) 07/29/24 13:57
WBC 7.0 10^3/uL (4.8-10.8) 07/29/24 13:57
Hgb 14.7 g/dL (12.0-16.0) 07/29/24 13:57
Hgb 14.7 g/dL (12.0-16.0) 07/29/24 13:57
Hct 44.3 % (37.0-47.0) 07/29/24 13:57
Hct 44.4 % (37.0-47.0) 07/29/24 13:57
Plt Count 250 10^3/uL (130-400) 07/29/24 13:57
Plt Count 268 10^3/uL (130-400) 07/29/24 13:57
Abs Immat Gran (auto) 0.0 10^3/uL (0-0.05) 07/29/24 13:57
Neutrophils % 66.6 % (42.2-75.2) 07/29/24 13:57
Allergy/AdvReac Type Severity Reaction Status Date / Time
No Known Allergies Allergy Verified 07/07/23 18:41
Physical Exam
General: Well Developed, Well Nourished and No Apparent Distress
GI: Soft and Non Tender
Rectal: Other (Left buttock wound, open down to muscle/bone, no evidence of gangrene noted)
Neuro: AO x 3
Data Reviewed
-
CT Scan: Report Reviewed by me, Discussed with Physician and Discussed with Patient
Labs: Labs Reviewed by me, Discussed with Physician and Discussed with Patient
Old Records: Reviewed
Assessment / Plan
-
Assessment: 44-year-old female with a history of diabetes status post AKA and recent left buttocks wound debridement presents with pain from her wound
Plan:
-No plans for surgery at this time. She remains afebrile and her white count is normal. Findings of air are likely related to the wound having communication given it is open in nature.
-Antibiotics per hospitalist
-Recommend wound RN for local wound care
-Follow-up with Dr. Peters as an outpatient
-Will sign off, please contact us if further issues arise
[2024-07-30] MEDS: NOVOLOG FLEXPEN-MODERATE RESISTANCE 11 UNITS SC (12:39)
[2024-07-30] MEDS: NOVOLOG FLEXPEN 10 UNITS SC (12:39)
--- NOTE | 2024-07-30 12:39 | PN.CDI ---
CDI
- -
CDI:
Physician Documentation Request
Admit Date: 07/29/24 11:49
Dear Doctor Waqas,
Please review the following and provide your response in the progress notes.
Clinical Indicators:
Selected Entries
07/29/24
15:37
Pressure injury stage [Left Buttock] Stage 4
Physician documentation of the type and location of wounds is required for compliant documentation. Based on the above clinical findings and your assessment, please provide the following in your progress note:
Type (etiology) and location of ulcer/wound:
- Diabetic ulcer
- Arterial (ischemic) ulcer
- Traumatic wound
- Pressure (decubitus) ulcer
For a pressure ulcer, please also include the stage* of the ulcer:
- Stage 1 - Skin intact, non-blanchable redness
- Stage 2 - Partial thickness loss of dermis, includes intact or open blister
- Stage 3 - Full thickness tissue not including bone, tendon or muscle
- Stage 4 - Full thickness tissue loss, including exposed bone, tendon or muscle
- Unstageable - Full thickness loss in which the base of the ulcer is covered by slough (yellow, lozano, cali, green or brown) and/or eschar (lozano, brown or black) in the wound bed.
Use of terms such as suspected, likely, concern for, or probable (associated with a specific diagnosis that is being evaluated, monitored, or treated as if it exists) are acceptable and can be coded in the inpatient setting, when documented at the
time of discharge.
Thank you,
Brea Roque RN BSN CCDS
CDI Specialist
please contact via tiger text
Please use your independent medical judgment in providing your response.
*Source: National Pressure Ulcer Advisory Panel (NPUAP)
--- NOTE | 2024-07-30 12:44 | PN.CDI ---
CDI
- -
CDI:
Physician Documentation Request
Admit Date: 07/29/24 11:49
Dear Doctor Waqas,
Please review the following and provide your response in the progress notes.
Clinical Indicators:
Laboratory Tests
07/29/24 07/30/24
16:50 07:58
Sodium 132 L 132 L
Based on the above, please clarify in the progress notes, the appropriate diagnosis, if significant, that supports the above abnormalities and additional evaluation, monitoring and/or treatment rendered:
Hyponatremia
Abnormal lab value, clinically insignificant
Other(please specify)
Use of terms such as suspected, likely, concern for, or probable (associated with a specific diagnosis that is being evaluated, monitored, or treated as if it exists) are acceptable and can be coded in the inpatient setting, when documented at the
time of discharge.
Thank you,
Brea Roque RN BSN CCDS
CDI Specialist
please contact via tiger text
Please use your independent medical judgment in providing your response.
[2024-07-30] MEDS: ROXICODONE 5 MG PO (13:36)
[2024-07-30 14:46] LABS: APTT 34.6 Sec (23.4-35.0)
--- NOTE | 2024-07-30 14:54 | PN.DE.MGMTRT ---
Insulin Management
- -
07/30/2024 Diabetes Management Consult
Patient went to [facility] ED for pain in L buttock, she requested transfer to . Arrived in ED c/o l buttock pain. PMH DVT, PE, bilat AKA, uncontrolled diabetes, current smoker, HLD. Patient know to diabetes team from frequent admissions in the
past. Prior to admission she states she took Lantus 30 units @ hs with 500 mg Metformin BID. She is adamant she did not take novolog AC AND WON'T. A1C 12.2%, cr .8, eGFR >60.
Patient is awake, alert, agitated, angry, using profanity. I proceeded to explain my purpose was to discuss A1C of 12.2% and discuss strategies to help reduce blood sugars to prevent further wounds and promote healing. She states she takes 30
units lantus @ hs and metformin 500 mg BID, AND THATS IT. I discussed that while she is here she will receive novolog AC and that she would benefit by taking that at home. She adamantly refused, she states I can't make her take it. I politely
agreed.
I do believe she would benefit from AC novolog at discharge. Will HOLD metformin as patient may require testing with contrast.
Will follow.
Diabetes History
- -
Type of Diabetes: 2 requiring insulin
Pre-Admission Diabetes Regimen
07/29/24 07/30/24
16:50 07:58
Creatinine 0.9 0.8
Lab Results
Hemoglobin A1c 12.2 % (4.0-5.6) H 07/29/24 13:57
Insulin Pump Settings
IP Diabetes Regimen
07/29/24 07/29/24 07/29/24
16:50 16:51 21:22
Glucose 314 H
POC Glucose 350 H 373 H
07/30/24 07/30/24
07:58 12:28
Glucose 344 H
POC Glucose 403 H
Meal type: Breakfast
Patient Education
--- NOTE | 2024-07-30 14:54 | W.PN.UPDATE ---
Update Note
Progress Note Update
Case discussed with Dr. Ellis. No indication for surgical debridement at this time. Stop heparin drip at 1800 and start Eliquis 10 mg twice daily at 2000. Patient with documented history of DVT and PE upon record review from [place]. Dr. Ellis
also mentioned exposed bone on exam. Will consult infectious disease regarding treatment for chronic osteomyelitis.
[2024-07-30 14:59] LABS: Glucose 251 mg/dl (70-99)
--- NOTE | 2024-07-30 16:27 | W.PN.UPDATE ---
Update Note
Progress Note Update
Contacted by nursing regarding question about holding heparin drip while patient went to MRI. At this point we will hold the heparin drip for MRI and then start anticoagulation with Eliquis at 1999.
[2024-07-30 17:05] LABS: Glucose - Point of Care 109 mg/dl (70-99)
[2024-07-30 17:30] VITALS: BP 144/75
--- NOTE | 2024-07-30 17:41 | PHA.VAN.IN ---
Assessment
- Assessment
Renal Function: Appears elevated from baseline (11/07/23 BASELINE SCR: 0.6)
Concomitant Antimicrobials: ZOSYN
- Previous Dosing Experience
Previous Regimen: 1500MG IV Q12H
Date of Regimen: 02/06/23
Provided Trough of: UNKNOWN
Provided AUC of: UNKNOWN
Patient's SCR is: Elevated compared to previous dosing experience (02/06/23 SCR = 0.6)
Patient's weight is: Decreased compared to previous dosing experience (02/07/24 WT = 96 KG)
AUC Dosing Plan
- Dosing Variables
Dosing Weight (kg): 67.8
Dosing CrCl (ml/min): 73
Vd coefficient (L/kg): 0.7
- Empiric Dosing
Initial / Loading Dose: 1500MG
Maintenance Regimen: 750MG IV Q12H
Estimated AUC (mcg*h/mL): 502
Estimated Peak (mcg*h/mL): 29.2
Estimated Trough (mcg/ml): 14.3
Estimated Half Life (H): 10.7
Pharmacokinetics Vancomycin I
- -
Patient Age: 44
Patient Sex: Female
Vancomycin Day #: 1
Indication: Bone And Joint (CHRONIC OSTEO)
Requesting Provider: MOISES
Height / Weight:
Height 5 ft 3 in
Actual Weight 67.812 kg
Pertinent Past Medical History: DM; BILAT AKA
- Vital Signs / Lab Results
Temp Pulse Resp BP Pulse Ox
98.2 F 72 18 125/105 94
07/29/24 23:30 07/30/24 07:30 07/30/24 07:30 07/30/24 07:30 07/30/24 07:30
Lab Results - Hematology
07/29/24 07/29/24
13:57 13:57
WBC 7.0 6.7
Lab Results - Chemistry
1107/29/24 07/30/24
13:57 16:50 07:58
BUN Cancelled 21 H 19 H
Creatinine Cancelled 0.9 0.8
Estimated Creat Clear Cancelled 73
Albumin Cancelled 3.2 L
[2024-07-30] MEDS: NOVOLOG FLEXPEN SC (18:03)
[2024-07-30] MEDS: VANCOCIN 530 MG IV (18:13)
[2024-07-30] MEDS: ELIQUIS 10 MG PO (20:03)
[2024-07-30 21:14] LABS: Glucose - Point of Care 216 mg/dl (70-99)
[2024-07-30] MEDS: ZOSYN 50 IV (21:58)
[2024-07-30] MEDS: LIPITOR 80 MG PO (22:21)
[2024-07-30] MEDS: LANTUS 0.3 UNITS SC (22:21)
[2024-07-30] MEDS: MORPHINE SULFATE 2 MG IV (22:22)
[2024-07-30 23:30] VITALS: BP 140/77
[2024-07-31] MEDS: TYLENOL PO ×2 (01:12→06:32)
[2024-07-31] MEDS: ZOSYN 50 IV ×3 (02:35→14:48)
[2024-07-31] MEDS: ROXICODONE 5 MG PO ×4 (04:48→23:07)
[2024-07-31] MEDS: VANCOCIN 150 IV (06:31)
[2024-07-31 07:00] VITALS: BP 138/53
--- NOTE | 2024-07-31 07:44 | PN.DE.MGMTRT ---
Insulin Management
- -
07/31/2024 Diabetes Management F/U:
44 year old female w/multiple hospitalizations, well know to me from her recent hosp stay. P/W worsening lower abdominal wall cellulitis.
PMH: CVA, TIA, PE on Eliquis, impaired vision left eye, B/L AKA- wheel chair bound, Obesity, Smoker, HC, T2DM, requiring insulin, Diabetic Neuropathy.
Patient went to [place] ED for pain in L buttock, she requested transfer to . Arrived in ED c/o left buttock pain. PMH DVT, PE, bilat AKA, uncontrolled diabetes, current smoker, HLD. Patient know to diabetes team from frequent admissions in
the past. Prior to admission she states she took Lantus 30 units @ hs with 500 mg Metformin BID. She is adamant she did not take NovoLog AC AND WON'T. She states she takes 30 units Lantus @ hs and metformin 500 mg BID, AND THATS IT. A1C 12.2%, Cr
.8, eGFR >60.
Patient is awake, alert, agitated, angry, unwilling to participate in discussion regarding diabetes mgt. Emphasized importance of adequate glucose control to prevent further wounds and promote healing. I discussed that while she is here she will
receive NovoLog AC and that she would benefit by taking that at home. She adamantly refused, she states I can't make her take it. Of note, pt refused her meal time insulin yesterday. She is dictating when and what dose of insulin she is willing to
take.
Her sugars remain elevated and uncontrolled. FBG 364 (V) this AM. Her premeal glucose trended up to 403 yesterday.
Will resume her Metformin at OP dose of 500mg BID
Will continue to follow.
Diabetes History
- -
Type of Diabetes: 2 requiring insulin
Pre-Admission Diabetes Regimen
07/30/24
07:58
Creatinine 0.8
Lab Results
Hemoglobin A1c 12.2 % (4.0-5.6) H 07/29/24 13:57
Insulin Pump Settings
IP Diabetes Regimen
07/30/24 07/30/24 07/30/24
07:58 12:28 14:19
Glucose 344 H 251 H
POC Glucose 403 H
07/30/24 07/30/24
17:04 21:13
Glucose
POC Glucose 109 H 216 H
Meal type: Dinner
Meal type: Breakfast
Amount consumed: 100%
Patient Education
[2024-07-31 08:10] LABS: Hematocrit 38.6 % (37.0-47.0); Hemoglobin 12.8 g/dL (12.0-16.0); Mean Corp Hgb Conc. 33.2 g/dL (33.0-37.0); Mean Corpuscular Hgb 30.5 pg (27.0-31.0); Mean Corpuscular Volume 91.9 fL (81.0-99.0); Mean Platelet Volume 9.9 fL (7.4-10.4); Platelet Count 229 10^3/uL (130-400); Red Cell Dist. Width 13.6 % (11.5-14.5); White Blood Cell Count 5.7 10^3/uL (4.8-10.8)
[2024-07-31 08:15] LABS: Blood Urea Nitrogen 20 mg/dl (7-17); Calcium 8.8 mg/dl (8.4-10.2); Carbon Dioxide 30 mmol/L (22-30); Chloride 95 mmol/L (98-107); Estimated Creatinine Clearance 65 ml/min; Glucose 364 mg/dl (70-99); Potassium 4.8 mmol/L (3.5-5.1); Sodium 132 mmol/L (135-145); eGFR > 60.00
[2024-07-31 08:45] LABS: Glucose - Point of Care 435 mg/dl (70-99)
--- NOTE | 2024-07-31 08:49 | CON.ID ---
Addendum entered and electronically signed by Adolfo Juárez DO 07/31/24 17:25:
I personally performed a history and physical exam of the patient and discussed management with the resident. I reviewed the resident's note and agree with the documented findings and plan of care HPI/CC.
During interview, patient found to be alternating between significant belligerence, and significant tearfulness.
MRI results from 07/30/2024 reviewed, and reveal evidence for osteomyelitis of the left ischial tuberosity.
At present, no immediate need for antibiotics as patient appears clinically stable and not systemically ill.
Management of the discovered osteomyelitis should first entail a microbiologic diagnosis, which would be obtained through biopsy. Although a wound culture can be performed, it has not been found to have significant correlation with underlying
bacterial etiology of osteomyelitis.
Once the bacterial etiology for the osteomyelitis is defined, long-term antibiotics can be administered, although given overall clinical condition, combined with ongoing uncontrolled diabetes mellitus, and possible longstanding nature of the
osteomyelitis, likelihood of cure is diminished.
Continue with local care to the area.
Obtain blood biopsy if patient will consent.
Original Note:
Chief Complaint / Past History
Chief Complaint
Left buttock pain
History of Present Illness
This is a 44yo female patient with PMH of Hx DVT/PE, CVA, severe PAD s/p bilateral AKA, type 2 diabetes, tobacco use, hyperlipidemia who presented to the ER from from [facility] 07/27/24 after refusing care and requesting transfer to
[facility] due to prior history with . History obtained from mostly from prior records with patient frustrated with further questioning.
Patient states that around April she had noticed a wound on her left buttock from chronic usage of wheelchair at home. She then states that her sister provided her 'home remedies that were working great until I had to go to the hospital' but did
not elaborate what exactly these home remedies were. After her wounds worsened, she was admitted to [place] where she was started on IV vancomycin for suspected sacral wound infection/cellulitis. With further treatment, she refused to allow care
from providers at [place] and requested that she be transferred here.
According to records, prior to this, she also had an admission on 05/2024 to [facility] for right lower extremity cellulitis and also has prior history of necrotizing fasciitis with surgery required at [place].
At this current time she denies any fever, chills, SOB or abdominal pain. She does endorse continued pain from her left buttock.
Past History
Past Medical History: CVA, IDDM and Other (PAD s/p B/L AKA, Hx DVT/PE)
Past Surgical History: Orthopedic (Bilateral AKA)
Allergy History:
No Known Allergies Allergy (Verified 07/07/23 18:41)
Social History
Tobacco: Smoker
Alcohol: None
Drug: None
Personal: Single
Living: Alone
Family History
Family History: Not Pertinent
Review of Systems
Review of Systems
General: Negative Fever or Chills
Respiratory: Negative Dyspnea
Gasteroenterology: Negative Nausea or Vomiting
Vital Signs
Temp Pulse Resp BP Pulse Ox
98.1 F 80 18 140/77 98
07/30/24 23:30 07/30/24 23:30 07/30/24 23:30 07/30/24 23:30 07/30/24 23:30
Physical Exam
Physical Exam
Constitutional: No Acute Distress
Head: Normocephalic
Cardiovascular: Regular Rate and S1/S2
Pulmonary: Clear
Gastrointestinal: Soft and Non Tender
Skin: Warm and Dry
Wound: Other (Large open wound on left medial buttock, Small wound on right AKA)
Neurological: Awake, Alert and Oriented
Lab / Diagnostic Study Results
07/31/24 07:28
Abs Immat Gran (auto) 0.0 10^3/uL (0-0.05) 07/29/24 13:57
Absolute Neuts (auto) 4.7 10^3/uL (1.4-6.5) 07/29/24 13:57
Absolute Lymphs (auto) 1.8 10^3/uL (1.2-3.4) 07/29/24 13:57
Absolute Monos (auto) 0.3 10^3/uL (0.1-0.6) 07/29/24 13:57
Absolute Basos (auto) 0.1 10^3/uL (0-0.2) 07/29/24 13:57
Immature Gran % 0.3 % (0-0.5) 07/29/24 13:57
Neutrophils % 66.6 % (42.2-75.2) 07/29/24 13:57
Lymphocytes % 26.0 % (20.5-51.1) 07/29/24 13:57
Monocytes % 4.4 % (1.7-9.3) 07/29/24 13:57
Eosinophils % 2.0 % (0-6) 07/29/24 13:57
Basophils % 0.7 % (0-2) 07/29/24 13:57
PT 13.2 Sec (11.4-14.6) 07/29/24 16:50
INR 0.95 07/29/24 16:50
Assessment / Plan
Left Buttock Wound- Osteomyelitis
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
Hx of CVA
Severe PAD s/p B/L AKA
IDDM
Tobacco Use
Recommendations:
-Afebrile, WBC within normal limits
-CT Abd 07/29: Chronic complete occusion of left common iliac and external iliac artery stents. Large 6.4 cm soft tissue wound in the Left inferomedial buttock extending deep into the left adductor muscle compartment and nearly to the level of the
left ischial tuberosity. Severe surrounding cellulitis.
-MRI Pelvis 07/30: No evidence for fistulous communication with the pelvic viscera. However, there is evidence for osteomyelitis of the left ischial tuberosity. No evidence for abscess.
-MRSA screen pending
-Discontinue IV Zosyn and IV Vancomycin at this time since patient is afeb/no leukocytosis, will likely need biopsy of wound site for narrowed lobsterman antibiotics treatment upon discharge if pt willing
-Will need further records from prior hospitals of ID workup
-Monitor WBC count
-Continue local wound care management
--- NOTE | 2024-07-31 09:06 | PHA.VAN.FU ---
Vancomycin Assessment / Plan
- Assessment
Renal Function: SCR Increasing (0.8>0.9)
WBC's are: Trending Down (6.7>5.7)
In the past 24 hrs, patient has been: Afebrile (no temp taken since 07/30 at 23:30 98.1)
Concomitant Antimicrobials: Piperacillin-tazobactam
- Dosing Plan
Continue: Vancomycin 750mg IV Q12hrs
- Monitoring Plan
Peak Level: Ordered for 08/01/24 at 20:30
Trough Level: Ordered for 08/02/24 at 05:30
- Follow Up
Pharmacy will continue to follow.
Vancomycin Follow UP
- -
Patient Age: 44
Patient Sex: Female
Vancomycin Day #: 2
Indication: Bone And Joint (CHRONIC OSTEO)
Requesting Provider: MOISES
Pertinent Antimicrobial Allergies:
No antibiotic allergies
Height / Weight:
Height 5 ft 3 in
Actual Weight 67.812 kg
IBW in k.4
Adjusted BW in k.6
Pertinent Past Medical History: DM; BILAT AKA
- Vital Signs / Lab Results
Temp Pulse Resp BP Pulse Ox
98.1 F 80 18 140/77 98
07/30/24 23:30 07/30/24 23:30 07/30/24 23:30 07/30/24 23:30 07/30/24 23:30
Lab Results - Hematology
07/29/24 07/29/24 07/31/24
13:57 13:57 07:28
WBC 7.0 6.7 5.7
Lab Results - Chemistry
07/29/24 07/29/24 07/30/24
13:57 16:50 07:58
BUN Cancelled 21 H 19 H
Creatinine Cancelled 0.9 0.8
Estimated Creat Clear Cancelled 73
Albumin Cancelled 3.2 L
07/31/24
07:28
BUN 20 H
Creatinine 0.9
Estimated Creat Clear 65
Albumin
[2024-07-31] MEDS: GLUCOPHAGE 500 MG PO ×2 (09:07→17:45)
[2024-07-31] MEDS: PROTONIX 40 MG PO (09:08)
[2024-07-31] MEDS: NEURONTIN 600 MG PO ×3 (09:08→22:06)
[2024-07-31] MEDS: ELIQUIS 10 MG PO ×2 (09:10→19:41)
[2024-07-31] MEDS: NOVOLOG FLEXPEN-MODERATE RESISTANCE 11 UNITS SC (09:11)
[2024-07-31] MEDS: NOVOLOG FLEXPEN 10 UNITS SC (09:12)
--- NOTE | 2024-07-31 09:50 | W.PN.UPDATE ---
Update Note
Progress Note Update
I personally performed a history and physical exam of the patient and discussed management with the resident. I reviewed the resident's note and agree with the documented findings and plan of care HPI/CC.
Patient interviewed, seen, examined with nurse Nisa Watts present during the entirety of the interview and physical exam.
Gen: NAD, AAOx3, appears chronically ill.
Eyes: EOMI (note slight lateral deviation L eye), PERRLA, no scleral icterus.
Neck: supple.
CV: remains RRR, +S1/S2, no m/r/g.
Resp: CTAB, no rales, wheezes, or rhonchi.
Abd: +BS/soft/ND/ND
Neuro: L facial droop
Psych: normal mood and affect
CT A/P:
1. CHRONIC COMPLETE OCCLUSION of LEFT COMMON ILIAC and EXTERNAL ILIAC ARTERY STENTS.
2. Complete occlusion of the left common femoral, proximal superficial femoral, and proximal profundus femoral arteries.
3. Complete occlusion of the right common femoral, proximal superficial femoral arteries, and profundus femoral arteries with reconstitution of the right profundus femoral artery.
4. Severe greater than 70% diameter stenosis of the origin of the inferior mesenteric artery.
5. Severe atherosclerotic plaque in the infrarenal abdominal aorta.
6. LARGE 6.4 cm SOFT TISSUE WOUND in the LEFT INFEROMEDIAL BUTTOCK extending deep into the left adductor muscle compartment and nearly to the level of the left ischial tuberosity. Severe surrounding cellulitis.
7. Severe chronic discogenic degenerative disease at L5/S1.
8. Grade 2 anterolisthesis of L5 on S1 secondary to bilateral L5 pars interarticularis spondylolysis.
9. Multiple calcified hepatic granulomas.
10. Interval enlargement of a 1.5 cm left retroperitoneal lymph node.
11. Retained contrast material in the kidneys and urinary bladder with suggestion of renal insufficiency.
12. Mild splenomegaly.
13. Moderate size left anterior abdominal wall fat-containing hernia.
MRI pelvis: Large left buttock wound. This tracks anteriorly and medially into the left side of the perineum, as detailed above. There is no evidence for fistulous communication with the pelvic viscera. However, there is evidence for osteomyelitis
of the left ischial tuberosity. No evidence for abscess.
Left aortoiliac occlusion, PAD:
-h/o B/L AKAs
-CT A/P above
-appreciate vascular, no intervention possible L iliac system
-was on heparin drip, now on Eliquis (h/o DVT/PE)
-wound care
-Appreciate CRS, no surgical intervention indicated at this time
-pain control with opioid analgesics
-c/s ID re: OM. Flower on Vanco/Zosyn.
DM2:
-a1c 12.2%
-cont Lantus/premeal Novolog/metformin
-SSI/accuchecks/diabetic diet.
-teacher physically impaired following
Other problems:
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
h/o CVA: cont statin. On Eliquis for h/o DVT/PE.
Mood lability, likely mood disorder: psych c/s placed
--- NOTE | 2024-07-31 10:07 | W.PN.HOSP.TC ---
Today's Communication/Plan
-
ID consult, palliative consult
Assessment / Plan
Assessment / Plan
4yo F with PMH DVT/PE not on anticoagulation, CVA, severe PAD s/p bilateral AKA, type 2 diabetes, tobacco use, hyperlipidemia who presented to [place] ED 07/27/24 for worsening left buttocks pain. She refused care at [place] [facility], and requested
transfer to [facility] given that she follows with vascular surgeons here.
Left buttocks unstageable wound
Osteomyelitis
- Examined with nursing assistance and watch crystal edge grinder on admission; removed/replaced wet packing and covered with new dressing. Wound is significant in size, estimate 5x6cm and 3cm deep. Clean, no significant drainage.
- Afebrile, no leukocytosis- continue to monitor CBC, temperature curve.
- Records requested from [place] per history of surgery for gangrene there
- MRI 07/30 showed signs of osteomyelitis of left ischial tuberosity, no evidence for abscess. No evidence for fistulous communication with pelvic viscera
- Colorectal and vascular surgery consulted, appreciate recs. No surgical intervention.
- Given concern for osteomyelitis, started on vanc and zosyn. ID consulted, appreciate recs.
- Continue pain management: tylenol, dilaudid, oxycodone. Required morphine overnight. Will consult palliative care, appreciate recs.
Left aortoilliac occlusion
History of severe PAD s/p bilat AKA
- Imaging requested from [place]. Reviewed report in provider's notes and CTA showed 'Aortoiliac atheromatous calcifications. Occluded left iliac common and external iliac artery.'
- CTA 07/29 at confirms chronic complete occlusions on left and right side, stenosis, atherosclerotic plaque.
- Consulted vascular surgery, appreciate recs. Per vascular review of CTA here, limited intervention available from vasc surg perspective.
- Initially on heparin drip --> transitioned to eliquis 10mg PO BID
DM2
- Patient denies history of diabetes and insulin requirements
- A1C 12.2%, slightly improved from October.
- Accuchecks, insulin sliding scale, diabetic diet.
- Continue lantus 30u and novolog 10u with meals.
- Consult informatics educator, appreciate recs.
?Adjustment disorder, mood lability
- Patient has documented history of being verbally abusive towards providers, refusing care, etc.
- Will consult psychiatry, appreciate evaluation and recommendations
- Patient agreeable with psychiatry consult, would like to speak to team again
- Discussed prn lorazepam for stress/anxiety while in hospital
Hyperlipidemia- continue atorvastatin
Code status: full; does not want family involved in any decisions regarding her healthcare
VTE ppx: eliquis 10mg po bid
Diet: Diabetic
Dispo planning: TBD
Anticipated Discharge: > 48 hours
Subjective/Interval History
-
Date of Service: July 31, 2024
No acute events overnight. This morning, patient is much more pleasant and engaging appropriately in conversation. We discussed her pain management. She says she does get relief from dilaudid, but the effect does not last long enough. She gets more
relief from morphine, which helped her pain longer and lasted from 10:30pm to 6:30am (though did require oxycodone at 4:48am). Denies headache, lightheadedness, dizziness, chest pain, shortness of breath, nausea, vomiting, diarrhea, constipation.
Last BM yesterday, no black or bloody stools. Tolerating PO diet.
Objective Data
-
Labs:
Laboratory Results
07/31/24 07/31/24
07:28 10:01
WBC 5.7
Hgb 12.8
Hct 38.6
Plt Count 229
Sodium 132 L
Potassium 4.8
Chloride 95 L
Carbon Dioxide 30
BUN 20 H
Creatinine 0.9
Glucose 364 H Pending
Calcium 8.8
Vital Signs:
Vital Signs
Temp Pulse Resp BP Pulse Ox
98.1 F 80 18 140/77 98
07/30/24 23:30 07/30/24 23:30 07/30/24 23:30 07/30/24 23:30 07/30/24 23:30
I&O
07/30/24 07/31/24 08/01/24
06:59 06:59 06:59
Intake Total 1104 / 1104 2497 / 2497
Output Total 600 / 600
Balance 1104 / 1104 1897 / 189
Review of Systems
-
History Source: Patient (see subjective)
Physical Exam
-
General: Well Nourished, Comfortable, Conversant and Appears Chronically Ill
HEENT: Normocephalic and Atraumatic
Respiratory: Clear to Auscultation and Non Labored Respirations
Cardiac: Regular Rhythm and S1/S2
GI: Soft, Nontender, Nondistended and Normal Bowel Sounds
Musculoskeletal: No Edema (upper extremities) and Other (s/p bilateral AKA)
Skin: Warm, Dry and Decubitus Ulcers (left buttocks)
Neuro: Awake, Alert, Oriented and Nonfocal/Grossly Intact
Psych: Calm and Intact Judgement/Insight
Data Reviewed
-
CT Scan: Image personally visualized and interpreted and Report Reviewed by me
MRI: Report Reviewed by me
Labs: Labs Reviewed by me
Old Records: Reviewed
[2024-07-31 10:31] LABS: Glucose 378 mg/dl (70-99)
[2024-07-31 12:35] LABS: Glucose - Point of Care 140 mg/dl (70-99)
[2024-07-31] MEDS: TYLENOL 650 MG PO ×3 (12:42→23:07)
[2024-07-31] MEDS: DILAUDID 2 MG PO (12:42)
[2024-07-31] MEDS: NOVOLOG FLEXPEN-MODERATE RESISTANCE SC ×2 (12:46→17:44)
[2024-07-31] MEDS: NOVOLOG FLEXPEN SC ×2 (12:46→17:44)
--- NOTE | 2024-07-31 12:52 | CM ---
custodial operations manager reviewed patient's chart and will follow up with patient progress and continue to follow with discharge planning needs for patient.
Plan; To follow with patient progress and wait ID recommendations.
--- NOTE | 2024-07-31 13:27 | W.CON.PAL ---
Consultation
-
Date/Time Consultation Requested: 07/31/24
Date/Time Consultation Performed: 07/31/24
Performing Provider: Bertha Strickland
Reason for Consult: Symptom & Pain Management
Primary Diagnosis: unstageable sacral wound, chronic osteo
Reason for Admission
Illness Course/HPI
44 year old F with history of CVA, DVT/PE, severe PAD with b/l AKAs, large sacral/L gluteal wound unstageable admitted from [place]. Initially at [place] for worsening buttocks pain, had multiple debridements in the past and recent admit at
[facility] with nec fasc. CT at that time showed extensive/complete occlusion of L iliac system. Requested transfer as she is well known to vascular surgery at .
Treating with ABX for chronic osteo/cellulits. Seen by vascular - no surgical intervention being offered. Recommended for wound care.
Consult for assistance with pain.
Pain & Symptom Assessment
Patient Symptoms
Patient Symptoms: Pain
[place] Symptom Scale 0=none, 10=worst
Pain: 4
Objective Data
-
Objective Data:
Vital Signs
Temp Pulse Resp BP Pulse Ox
98.1 F 80 18 140/77 98
07/30/24 23:30 07/30/24 23:30 07/30/24 23:30 07/30/24 23:30 07/30/24 23:30
Laboratory Results
07/31/24 07:28
07/31/24 10:01
PT 13.2 Sec (11.4-14.6) 07/29/24 16:50
INR 0.95 07/29/24 16:50
APTT 34.6 Sec (23.4-35.0) 07/30/24 14:19
Hemoglobin A1c 12.2 % (4.0-5.6) H 07/29/24 13:57
Total Protein 6.4 g/dl (6.3-8.2) 07/29/24 16:50
Albumin 3.2 g/dl (3.5-5.0) L 07/29/24 16:50
Palliative Performance Scale
Palliative Performance Scale:
PPS Level Ambulation Activity & Evidence of Disease Self Care Intake Conscious Level
100% Full Normal Activity & Work; Full Intake Full
No Evidence of Disease
90% Full Normal Activity & Work; Full Normal Full
Some Evidence of Disease
80% Full Normal Activity with Effort Full Normal or Full
Some Evidence of Disease Reduced
70% Reduced Unable Normal Job/Work Full Normal or Full
Significant Disease Reduced
60% Reduced Unable Hobby/Housework Occasional Normal or Full or Confusion
Significant Disease Assistance Reduced
50% Mainly Sit/Lie Unable to do Any Work Considerable Normal or Full or Confusion
Extensive Disease Assistance Req'd Reduced
40% Mainly in Bed Unable to do Most Activity Mainly Assistance Normal or Full or Drowsy;
Extensive Disease Reduced +/- Confusion
30% Totally Bed Unable to do Any Activity Total Care Normal or Full or Drowsy;
Bound Extensive Disease Reduced +/- Confusion
20% Totally Bed Bound Unable to do Any Activity Total Care Minimal to Full or Drowsy;
Extensive Disease Sips +/- Confusion
10% Totally Bed Bound Unable to do Any Activity Total Care Mouth Care Drowsy or Coma;
Extensive Disease Only +/- Confusion
0%
PPS Score Level:
Physical Exam
-
General: Comfortable and Appears Chronically Ill
HEENT: Normocephalic
Respiratory: Clear to Auscultation
Cardiac: Regular Rhythm
GI: Soft and Nondistended
Skin: Warm
Neuro: AO x 3
Assessment / Plan
-
Assessment/Plan:
44 year old F with large unstageable sacral wound with chronic osteo.
- seen at bedside. Appears comfortable and is happy with her pain management at this time.
- states the oxycodone helps more than the po dilaudid, also takes tylenol in between which helps her.
- would dc the po dilaudid. Continue oxycodone 5mg PRN but increase frequency to q4 PRN
- continue gabapentin
Care Reviewed
Data Reviewed
Chest X ray: Image Reviewed
Radiology procedure: Image Reviewed
Medical Tests: I reviewed
Reviewed with: Patient and Physician
[2024-07-31 15:00] VITALS: BP 139/73
--- NOTE | 2024-07-31 16:13 | VATNOTE ---
called to restart pt's IV; NORRIS IV started last jean by this VAT RN is now infiltrated. Pt with extremely poor vasculature. Midline best fo rpt. However pt is refusing midline and refusing pink limb alert on left stroke arm.
[2024-07-31 17:25] LABS: Glucose - Point of Care 124 mg/dl (70-99)
[2024-07-31] MEDS: LANTUS 0.3 UNITS SC (22:06)
[2024-07-31] MEDS: LIPITOR 80 MG PO (22:06)
[2024-07-31 23:00] VITALS: BP 152/88
[2024-08-01] MEDS: ROXICODONE 5 MG PO ×2 (03:07→07:24)
--- NOTE | 2024-08-01 05:40 | PTCARENOTE ---
PCT attempted to take pts evening blood sugar via figurer stick. Pt stuck twice with no blood results. After the second stick pt adamantly refused to have her figurer stuck again. This RN attempted to educate the pt on the importance of knowing
blood sugar for wound management. Pt continued to refuse yelling and cursing at staff stating that 'this is fucking stupid' and 'I know my rights.' Pt agreed to to notified RN if she starts to feel that her blood sugar is low.
[2024-08-01] MEDS: TYLENOL PO (05:53)
--- NOTE | 2024-08-01 08:43 | PTCARENOTE ---
pt refused to have 0730 Blood sugar taken.
[2024-08-01] MEDS: NOVOLOG FLEXPEN-MODERATE RESISTANCE SC (08:45)
[2024-08-01] MEDS: NOVOLOG FLEXPEN SC (08:45)
[2024-08-01] MEDS: GLUCOPHAGE 500 MG PO ×2 (08:46→16:00)
[2024-08-01] MEDS: NEURONTIN 600 MG PO ×3 (08:46→22:44)
[2024-08-01] MEDS: PROTONIX 40 MG PO (08:46)
[2024-08-01] MEDS: ELIQUIS 10 MG PO ×2 (08:46→20:46)
--- NOTE | 2024-08-01 08:55 | PTCARENOTE ---
pt took her oral meds with water, but refused to have her blood glucose taken this morning.
--- NOTE | 2024-08-01 09:52 | W.PN.HOSP.TC ---
Today's Communication/Plan
-
Bone Bx 08/03/24
Assessment / Plan
Assessment / Plan
Patient seen and examined with nurse Carlos Ruby present at bedside for the entirety of the exam.
Gen: NAD, AAOx3, appears chronically ill.
Eyes: EOMI (note slight lateral deviation L eye), PERRLA, no scleral icterus.
Neck: supple.
CV: remains RRR, +S1/S2, no m/r/g.
Resp: CTAB, no rales, wheezes, or rhonchi.
Neuro: L facial droop
Psych: angry and tearful
CT A/P:
1. CHRONIC COMPLETE OCCLUSION of LEFT COMMON ILIAC and EXTERNAL ILIAC ARTERY STENTS.
2. Complete occlusion of the left common femoral, proximal superficial femoral, and proximal profundus femoral arteries.
3. Complete occlusion of the right common femoral, proximal superficial femoral arteries, and profundus femoral arteries with reconstitution of the right profundus femoral artery.
4. Severe greater than 70% diameter stenosis of the origin of the inferior mesenteric artery.
5. Severe atherosclerotic plaque in the infrarenal abdominal aorta.
6. LARGE 6.4 cm SOFT TISSUE WOUND in the LEFT INFEROMEDIAL BUTTOCK extending deep into the left adductor muscle compartment and nearly to the level of the left ischial tuberosity. Severe surrounding cellulitis.
7. Severe chronic discogenic degenerative disease at L5/S1.
8. Grade 2 anterolisthesis of L5 on S1 secondary to bilateral L5 pars interarticularis spondylolysis.
9. Multiple calcified hepatic granulomas.
10. Interval enlargement of a 1.5 cm left retroperitoneal lymph node.
11. Retained contrast material in the kidneys and urinary bladder with suggestion of renal insufficiency.
12. Mild splenomegaly.
13. Moderate size left anterior abdominal wall fat-containing hernia.
MRI pelvis: Large left buttock wound. This tracks anteriorly and medially into the left side of the perineum, as detailed above. There is no evidence for fistulous communication with the pelvic viscera. However, there is evidence for osteomyelitis
of the left ischial tuberosity. No evidence for abscess.
Left aortoiliac occlusion, PAD:
-h/o B/L AKAs
-CT A/P above
-appreciate vascular, no intervention possible L iliac system
-was on heparin drip, now on Eliquis (h/o DVT/PE)
-wound care
-Appreciate CRS, no surgical intervention indicated at this time
-pain control with opioid analgesics
-Patient was seen in consult by ID regarding OM. Pt had been ordered Vanco/Zosyn which were stopped by ID. Pt will need Bone Bx prior to initiation of abx. She is agreeable, will c/s IR.
DM2:
-a1c 12.2%
-cont Lantus/premeal Novolog/metformin (noting the patient is refusing some of the doses)
-SSI/accuchecks/diabetic diet.
-family living educator following
Other problems:
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
h/o CVA: cont statin. On Eliquis for h/o DVT/PE.
Mood lability, likely mood disorder: psych c/s placed but patient refused
FULL/Eliquis
Anticipated Discharge: > 48 hours
Subjective/Interval History
-
Date of Service: August 01, 2024
Patient is very agitated, tearful, and angry about being hospitalized.
Objective Data
-
Vital Signs:
Vital Signs
Temp Pulse Resp BP Pulse Ox
98.0 F 77 16 152/88 96
07/31/24 23:00 07/31/24 23:00 07/31/24 23:00 07/31/24 23:00 07/31/24 23:00
I&O
07/31/24 08/01/24 08/02/24
06:59 06:59 06:59
Intake Total 2497 / 2497 1440 / 1440
Output Total 600 / 600 1200 / 1200
Balance 1896 / 1896 240 / 240
[2024-08-01] MEDS: MORPHINE SULFATE 2 MG IV ×3 (11:17→20:46)
[2024-08-01 11:31] LABS: Glucose - Point of Care 333 mg/dl (70-99)
[2024-08-01] MEDS: NOVOLOG FLEXPEN-MODERATE RESISTANCE 7 UNITS SC (11:35)
[2024-08-01] MEDS: NOVOLOG FLEXPEN 10 UNITS SC ×2 (11:36→17:07)
[2024-08-01] MEDS: TYLENOL 650 MG PO ×3 (12:28→22:57)
[2024-08-01] MEDS: ATIVAN 0.5 MG PO (14:23)
[2024-08-01 15:00] VITALS: BP 125/75
[2024-08-01 16:30] LABS: Glucose - Point of Care 182 mg/dl (70-99)
[2024-08-01] MEDS: NOVOLOG FLEXPEN-MODERATE RESISTANCE 1 UNITS SC (17:08)
[2024-08-01 22:41] LABS: Glucose - Point of Care 115 mg/dl (70-99)
[2024-08-01] MEDS: LANTUS 0.3 UNITS SC (22:44)
[2024-08-01] MEDS: LIPITOR 80 MG PO (22:45)
[2024-08-01 23:49] VITALS: BP 117/60
[2024-08-02] MEDS: MORPHINE SULFATE 2 MG IV ×5 (03:52→21:46)
[2024-08-02] MEDS: TYLENOL 650 MG PO ×4 (06:10→23:20)
[2024-08-02] MEDS: NOVOLOG FLEXPEN-MODERATE RESISTANCE SC ×2 (07:58→09:20)
[2024-08-02 09:05] LABS: Hematocrit 40.6 % (37.0-47.0); Hemoglobin 13.5 g/dL (12.0-16.0); Mean Corp Hgb Conc. 33.3 g/dL (33.0-37.0); Mean Corpuscular Hgb 30.7 pg (27.0-31.0); Mean Corpuscular Volume 92.3 fL (81.0-99.0); Mean Platelet Volume 9.6 fL (7.4-10.4); Platelet Count 257 10^3/uL (130-400); Red Cell Dist. Width 13.6 % (11.5-14.5); White Blood Cell Count 7.6 10^3/uL (4.8-10.8)
[2024-08-02 09:10] VITALS: BP 130/80
[2024-08-02 09:10] LABS: Glucose - Point of Care 148 mg/dl (70-99)
[2024-08-02] MEDS: NEURONTIN 600 MG PO ×3 (09:13→21:04)
[2024-08-02] MEDS: PROTONIX 40 MG PO (09:16)
[2024-08-02] MEDS: GLUCOPHAGE 500 MG PO ×2 (09:16→16:55)
[2024-08-02] MEDS: ELIQUIS 10 MG PO ×2 (09:16→21:04)
[2024-08-02] MEDS: NOVOLOG FLEXPEN 10 UNITS SC ×3 (09:21→17:51)
[2024-08-02 09:33] LABS: Blood Urea Nitrogen 18 mg/dl (7-17); Calcium 8.8 mg/dl (8.4-10.2); Carbon Dioxide 30 mmol/L (22-30); Chloride 101 mmol/L (98-107); Estimated Creatinine Clearance 73 ml/min; Glucose 166 mg/dl (70-99); Potassium 4.6 mmol/L (3.5-5.1); Sodium 138 mmol/L (135-145); eGFR > 60.00
--- NOTE | 2024-08-02 10:44 | PTCARENOTE ---
Assumed care of pt from previous nurse. pt with to left buttock, morphine provided with positive results. Pt agitated at times, curses, gets angry and moves past it with this RN. pt call olivier is within reach, pt rings jae. will cont to monitor.
--- NOTE | 2024-08-02 10:45 | W.PN.HOSP.TC ---
Today's Communication/Plan
-
see bold
Assessment / Plan
Assessment / Plan
Patient seen and examined with nurse Karuna Peter present at bedside for the entirety of the exam.
Gen: NAD, AAOx3, appears chronically ill.
Eyes: EOMI (note slight lateral deviation L eye), PERRLA, no scleral icterus.
Neck: supple.
CV: continues to remain RRR, +S1/S2, no m/r/g.
Resp: CTAB anteriorly, no rales, wheezes, or rhonchi.
Neuro: L facial droop
Psych: calm
CT A/P:
1. CHRONIC COMPLETE OCCLUSION of LEFT COMMON ILIAC and EXTERNAL ILIAC ARTERY STENTS.
2. Complete occlusion of the left common femoral, proximal superficial femoral, and proximal profundus femoral arteries.
3. Complete occlusion of the right common femoral, proximal superficial femoral arteries, and profundus femoral arteries with reconstitution of the right profundus femoral artery.
4. Severe greater than 70% diameter stenosis of the origin of the inferior mesenteric artery.
5. Severe atherosclerotic plaque in the infrarenal abdominal aorta.
6. LARGE 6.4 cm SOFT TISSUE WOUND in the LEFT INFEROMEDIAL BUTTOCK extending deep into the left adductor muscle compartment and nearly to the level of the left ischial tuberosity. Severe surrounding cellulitis.
7. Severe chronic discogenic degenerative disease at L5/S1.
8. Grade 2 anterolisthesis of L5 on S1 secondary to bilateral L5 pars interarticularis spondylolysis.
9. Multiple calcified hepatic granulomas.
10. Interval enlargement of a 1.5 cm left retroperitoneal lymph node.
11. Retained contrast material in the kidneys and urinary bladder with suggestion of renal insufficiency.
12. Mild splenomegaly.
13. Moderate size left anterior abdominal wall fat-containing hernia.
MRI pelvis: Large left buttock wound. This tracks anteriorly and medially into the left side of the perineum, as detailed above. There is no evidence for fistulous communication with the pelvic viscera. However, there is evidence for osteomyelitis
of the left ischial tuberosity. No evidence for abscess.
Left aortoiliac occlusion, PAD:
-h/o B/L AKAs
-CT A/P above
-appreciate vascular, no intervention possible L iliac system
-was on heparin drip, now on Eliquis (h/o DVT/PE)
-wound care
-Appreciate CRS, no surgical intervention indicated at this time
-pain control with opioid analgesics
-Patient was seen in consult by ID regarding OM. Pt had been ordered Vanco/Zosyn which were stopped by ID. Pt will need Bone Bx prior to initiation of abx. She is agreeable, IR c/s placed, for bone Bx 08/03/24.
DM2:
-a1c 12.2%
-cont Lantus/premeal Novolog/metformin (noting the patient is refusing some of the doses)
-SSI/accuchecks/diabetic diet.
-assistant business manager following
Other problems:
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
h/o CVA: cont statin. On Eliquis for h/o DVT/PE.
Mood lability, likely mood disorder: psych c/s placed but patient refused
FULL/Eliquis
Anticipated Discharge: > 48 hours
Subjective/Interval History
-
Date of Service: August 02, 2024
No new complaints.
Objective Data
-
Labs:
Laboratory Results
08/02/24
08:47
WBC 7.6
Hgb 13.5
Hct 40.6
Plt Count 257
Sodium 138
Potassium 4.6
Chloride 101
Carbon Dioxide 30
BUN 18 H
Creatinine 0.8
Glucose 166 H
Calcium 8.8
Vital Signs:
Vital Signs
Temp Pulse Resp BP Pulse Ox
98.8 F 67 16 130/80 99
08/02/24 09:10 08/02/24 09:10 08/02/24 09:10 08/02/24 09:10 08/02/24 09:10
I&O
08/01/24 08/02/24 08/03/24
06:59 06:59 06:59
Intake Total 1440 / 1440 1680 / 1680
Output Total 1200 / 1200
Balance 240 / 240 1680 / 1680
[2024-08-02] MEDS: NOVOLOG FLEXPEN-MODERATE RESISTANCE 1 UNITS SC ×2 (11:38→17:51)
[2024-08-02 11:48] LABS: Glucose - Point of Care 159 mg/dl (70-99)
--- NOTE | 2024-08-02 13:18 | CM ---
manager garden reviewed patient's chart and met with patient this am, patient's chest tube has been removed and plan is for patient to return to home, patient will need IV abx and referral sent to [facility], still waiting on cee of home IV ABX.
Message left for [facility].
Plan; To follow up with [facility] to check on ece of home IV ABX.
--- NOTE | 2024-08-02 13:52 | CM ---
Patient states that she plans on return ing to home with stable, patient is agreeable to visiting nurses and has selected [facility], referral sent to [facility].
Plan; Home with [facility].
[2024-08-02 18:02] LABS: Glucose - Point of Care 185 mg/dl (70-99)
[2024-08-02] MEDS: LIPITOR 80 MG PO (21:04)
[2024-08-02 21:34] LABS: Glucose - Point of Care 115 mg/dl (70-99)
[2024-08-02] MEDS: LANTUS 0.3 UNITS SC (21:49)
[2024-08-02 23:55] VITALS: BP 131/84
[2024-08-03] MEDS: ATIVAN 0.5 MG PO (01:15)
[2024-08-03] MEDS: DILAUDID 0.25 MG IV (02:02)
[2024-08-03] MEDS: TYLENOL 650 MG PO ×4 (06:25→22:30)
[2024-08-03 07:34] LABS: Glucose - Point of Care 269 mg/dl (70-99)
[2024-08-03 08:13] VITALS: BP 133/98
--- NOTE | 2024-08-03 08:45 | PN.DE.MGMTRT ---
Insulin Management
- -
08/03/2024 Diabetes Management F/U:
44 year old female w/multiple hospitalizations, well know to me from her recent hosp stay. P/W worsening lower abdominal wall cellulitis.
PMH: CVA, TIA, PE on Eliquis, impaired vision left eye, B/L AKA- wheel chair bound, Obesity, Smoker, HC, T2DM, requiring insulin, Diabetic Neuropathy.
Patient went to [facility] ED for pain in L buttock, she requested transfer to . Arrived in ED c/o left buttock pain. PMH DVT, PE, bilat AKA, uncontrolled diabetes, current smoker, HLD. Patient know to diabetes team from frequent admissions in
the past. Prior to admission she states she took Lantus 30 units @ hs with 500 mg Metformin BID. She is adamant she did not take NovoLog AC AND WON'T. She states she takes 30 units Lantus @ hs and metformin 500 mg BID, AND THATS IT. A1C 12.2%, Cr
.8, eGFR >60.
Patient is awake, alert, agitated, angry, unwilling to participate in discussion regarding diabetes mgt.
Diet was changed to regular by Dr. Alan. Of note, has been taking her insulin as ordered. NPO for bone bx today.
Glucose stable, 08/02 premeal 148 to 185. FBG 269.
Will make no changes to current regimen; NovoLog 10 units AC, Lantus 30 units and Metformin 500mg BID
Will follow and make adjustments if needed
Diabetes History
- -
Type of Diabetes: 2 requiring insulin
Pre-Admission Diabetes Regimen
08/02/24
08:47
Creatinine 0.8
Lab Results
Hemoglobin A1c 12.2 % (4.0-5.6) H 07/29/24 13:57
Insulin Pump Settings
IP Diabetes Regimen
08/02/24 08/02/24 08/02/24
08:47 09:09 11:36
Glucose 166 H
POC Glucose 148 H 159 H
08/02/24 08/02/24 08/03/24
17:50 21:33 07:33
Glucose
POC Glucose 185 H 115 H 269 H
Meal type: Dinner
Meal type: Lunch
Amount consumed: 100%
Amount consumed: 100%
Patient Education
--- NOTE | 2024-08-03 09:53 | W.PN.HOSP.TC ---
Addendum entered and electronically signed by Rony Ramos DO, Resident 08/04/24 15:52:
Chronic left pelvis(left ischial tuberosity) osteomyelitis with unstageable wound:
No further surgical debridement recommended by colorectal surgery
Wound care last saw patient on 07/29, order placed for reevaluation
Vanco and Zosyn were stopped by ID and recommendations were made for bone biopsy completion prior to initiation of antibiotics. Patient will be n.p.o. after midnight and continue to hold Eliquis until bone biopsy 08/05
Patient restarted on opioid management for pain. Morphine and oxycodone as needed.
Addendum entered and electronically signed by Brea Yadav MD 08/03/24 19:32:
I saw and evaluated the patient independently. I reviewed the resident�s note and agree with findings and plan as documented by Dr. Ramos.
GENERAL: chronically ill appearing female in no apparent distress--very upset bone biopsy was cancelled
HEENT: NC/AT
HEART: regular rate and rhythm, +S1, +S2
LUNGS : clear to auscultation bilaterally
ABDOM: soft, nontender, nondistended, + bowel sounds
EXT: no cyanosis, clubbing, or edema--bilateral AKA
NEUROLOGIC: grossly intact
chronic osteomyelitis of left buttock with unstageable wound (POA)--apprec wound care--trying to obtain bone biopsy (holding abx until culture obtained) but Eliquis not held and pt not NPO so biopsy was canceled--very upset and threw a full bedside
commode at the nursededrick called--pt cursing and using f words throughout my conversation with her--told pt she is free to leave but would be AMA--so far pt staying for biopsy--apprec ID, IR--pain control
Left aortoiliac occlusion and PAD/History of bilateral AKA's--CT scan with chronic complete occlusion of the left common iliac and external iliac arteries (apprec vascular, no intervention possible)--holding Eliquis for biopsy
diabetes mellitus type 2--A1c 12.2%--not controlled--pt wants her own diet--apprec DM SUPERVISOR CUTTING AND SEWING ROOM--cont Lantus/premeal Novolog/metformin--SSI and accuchecks
history of DVT and PE--Transition from heparin gtt, now on Eliquis (holding as above)
history of CVA--Continue statin--Continue Eliquis
mood lability--Psych consulted but patient refused evaluation
CODE status -- FULL CODE
DVT proph
Original Note:
Today's Communication/Plan
-
.
Assessment / Plan
Assessment / Plan
44yo F with PMH DVT/PE, CVA, severe PAD s/p bilateral AKA, type 2 diabetes, tobacco use, hyperlipidemia who presented to [facility] ED 07/27/24 for worsening left buttocks pain.
1. Left aortoiliac occlusion and PAD
History of bilateral AKA's
CT and MRI report below
Per vascular consultation, no interventional possible due to left iliac system
Transitioned patient from heparin to Eliquis (history of DVT/PE)
No further surgery recommended by colorectal surgery
1 dose of 0.25 Dilaudid given overnight for breakthrough pain.
Patient restarted on opioid management for pain. Dilaudid and oxycodone as needed.
Vanco and Zosyn were stopped by ID and recommendations were made for bone biopsy completion prior to initiation of antibiotics. She must be n.p.o. and off of Eliquis for 48 hours prior to bone biopsy, earliest date will be Saturday.
2. diabetes mellitus type 2
A1c 12.2%
Continue Lantus/premeal Novolog/metformin
SSI and accuchecks
tray drier following
3.history of DVT and PE
Transition from heparin gtt, now on Eliquis
4.history of CVA
Continue statin
Continue Eliquis
5.mood lability
Psych consulted but patient refused evaluation
FULL/Eliquis
-----
CT A/P:
1. CHRONIC COMPLETE OCCLUSION of LEFT COMMON ILIAC and EXTERNAL ILIAC ARTERY STENTS.
2. Complete occlusion of the left common femoral, proximal superficial femoral, and proximal profundus femoral arteries.
3. Complete occlusion of the right common femoral, proximal superficial femoral arteries, and profundus femoral arteries with reconstitution of the right profundus femoral artery.
4. Severe greater than 70% diameter stenosis of the origin of the inferior mesenteric artery.
5. Severe atherosclerotic plaque in the infrarenal abdominal aorta.
6. LARGE 6.4 cm SOFT TISSUE WOUND in the LEFT INFEROMEDIAL BUTTOCK extending deep into the left adductor muscle compartment and nearly to the level of the left ischial tuberosity. Severe surrounding cellulitis.
7. Severe chronic discogenic degenerative disease at L5/S1.
8. Grade 2 anterolisthesis of L5 on S1 secondary to bilateral L5 pars interarticularis spondylolysis.
9. Multiple calcified hepatic granulomas.
10. Interval enlargement of a 1.5 cm left retroperitoneal lymph node.
11. Retained contrast material in the kidneys and urinary bladder with suggestion of renal insufficiency.
12. Mild splenomegaly.
13. Moderate size left anterior abdominal wall fat-containing hernia.
MRI pelvis: Large left buttock wound. This tracks anteriorly and medially into the left side of the perineum, as detailed above. There is no evidence for fistulous communication with the pelvic viscera. However, there is evidence for osteomyelitis
of the left ischial tuberosity. No evidence for abscess.
Anticipated Discharge: > 48 hours
Subjective/Interval History
-
Date of Service: August 03, 2024
44yo F with PMH DVT/PE, CVA, severe PAD s/p bilateral AKA, type 2 diabetes, tobacco use, hyperlipidemia who presented to [facility] ED 07/27/24 for worsening left buttocks pain. Due to established care at [facility], she refused care at
[facility] and presented here. Per vascular consultation, no invasive therapy will be offered. Today in conversation, patient was irritable and did not answer questions. She refused further examination today. Patient was planned to get bone
biopsy, but will need to be off of Eliquis for 48 hours prior to intervention.
Objective Data
-
Vital Signs:
Vital Signs
Temp Pulse Resp BP Pulse Ox
98.6 F 69 18 133/98 98
08/03/24 08:13 08/03/24 08:13 08/03/24 08:13 08/03/24 08:13 08/03/24 08:13
I&O
08/02/24 08/03/24 08/04/24
06:59 06:59 06:59
Intake Total 1680 / 1680 600 / 600
Balance 1680 / 1680 600 / 600
Review of Systems
-
Unable to obtain full review of systems at this time due to: Other (Patient refused and did not answer questions)
Physical Exam
-
General: Well Developed, No Apparent Distress, Conversant and Other (Bilateral AKA)
HEENT: Normocephalic and Atraumatic
Neuro: AO x 3
Psych: Agitated
Data Reviewed
-
Diagnostic Radiology: Report Reviewed by me
CT Scan: Report Reviewed by me
MRI: Report Reviewed by me
Labs: Labs Reviewed by me and Discussed with Physician
--- NOTE | 2024-08-03 10:30 | PTCARENOTE ---
at approximately 10am sports writer was speaking with pt about not receiving her bone biopsy today as previously scheduled. pt was informed that because she received eliquis the night prior that she would not be able to get biopsy until 08/05 now due
to needing 48 hour wash-out. pt became verbally abusive towards sports writer and started screaming and cursing. pt then threw urine filled commode and starting banging remote against bed rail. code louie was called.
[2024-08-03] MEDS: NOVOLOG FLEXPEN 10 UNITS SC ×2 (10:45→16:00)
[2024-08-03] MEDS: NOVOLOG FLEXPEN-MODERATE RESISTANCE 5 UNITS SC (10:49)
[2024-08-03] MEDS: NEURONTIN 600 MG PO ×3 (10:50→22:26)
[2024-08-03] MEDS: GLUCOPHAGE 500 MG PO ×2 (10:50→17:25)
[2024-08-03] MEDS: PROTONIX 40 MG PO (10:50)
[2024-08-03] MEDS: ELIQUIS PO (10:51)
--- NOTE | 2024-08-03 11:15 | PTCARENOTE ---
08/03- Patient requested pain medication. Advised Oxycodone is all that is ordered at this time which she accepted. I took out the oxycodone 5mg, brought it back to patient to administer, and she stated, '5mg? That's not going to do shit. What
happened to my morphine?' Was able to keep patient de-escalated, and advised I will inquire to Physician about the change in pain medication. Patient remains de-escalated at this time, and advises pain is 10/10 in her buttox.
--- NOTE | 2024-08-03 11:23 | VNURNOTE ---
[facility] liaison attempted to meet with patient. She was on commode. Left [facility] brochure at bedside. Inquired by doorway if patient was interested in receiving [facility] nurses for wound care. Patient declined stating 'I already talked to the correctional counselor/case manager,
respectfully No.' Nurse in room and aware of conversation. ROMAN Gregg updated. No [facility] referral placed at this time.
--- NOTE | 2024-08-03 11:30 | PTCARENOTE ---
08/03- Patient refuses dressing changes stating, 'It hurts too much, and you packed the shit out of it last time. I don't want it anymore.' Attempted educating patient on maintaining cleanliness and routine care of wound for proper healing. She
verbalized understanding, remains de-escalated but states she is still refusing at this time. See Wound Intervention.
[2024-08-03] MEDS: MORPHINE SULFATE 2 MG IV ×3 (11:38→20:17)
--- NOTE | 2024-08-03 12:41 | W.PN.PAL2 ---
Today's Communication
-
Palliative care follow up, total floor time 25 mins, face to face time 11:40-11:55,
Patient upset and angry about cancelled bone marrow biopsy, now rescheduled for saturday.
Pain control remains an issue, required 5 prn doses of IV morphine yesterday, did not receive oxycodone po. reports that morphine IV helps with pain control
Patient reported first that oxycodone does nothing, later that it helps at home. then states she was too discombobulated and upset did not want to discuss further today.
Recommended that patient consider a long acting pain medication for better pain relief, but will follow up tomorrow. patient uninterested in further conversation today
Assessment / Plan
-
Assessment/Plan:
no changes to med dosing at this time.
Reason for Admission
Illness Course/HPI
44 year old F with history of CVA, DVT/PE, severe PAD with b/l AKAs, large sacral/L gluteal wound unstageable admitted from [place]. Initially at [place] for worsening buttocks pain, had multiple debridements in the past and recent admit at
[facility] with jordin pineda. CT at that time showed extensive/complete occlusion of L iliac system. Requested transfer as she is well known to vascular surgery at .
Treating with ABX for chronic osteo/cellulits. Seen by vascular - no surgical intervention being offered. Recommended for wound care.
Consult for assistance with pain.
Goals of Care Discussion
-
Patient able to participate in discussion at time of visit: No
Pain & Symptom Assessment
Patient Symptoms
Patient Symptoms: Pain
-
reports severe pain. denies constipation. .
Objective Data
-
Objective Data:
Vital Signs
Temp Pulse Resp BP Pulse Ox
98.6 F 69 18 133/98 98
08/03/24 08:13 08/03/24 08:13 08/03/24 08:13 08/03/24 08:13 08/03/24 08:13
Laboratory Results
08/02/24 08:47
08/02/24 08:47
PT 13.2 Sec (11.4-14.6) 07/29/24 16:50
INR 0.95 07/29/24 16:50
APTT 34.6 Sec (23.4-35.0) 07/30/24 14:19
Hemoglobin A1c 12.2 % (4.0-5.6) H 07/29/24 13:57
Total Protein 6.4 g/dl (6.3-8.2) 07/29/24 16:50
Albumin 3.2 g/dl (3.5-5.0) L 07/29/24 16:50
Palliative Performance Scale
Palliative Performance Scale:
PPS Level Ambulation Activity & Evidence of Disease Self Care Intake Conscious Level
100% Full Normal Activity & Work; Full Intake Full
No Evidence of Disease
90% Full Normal Activity & Work; Full Normal Full
Some Evidence of Disease
80% Full Normal Activity with Effort Full Normal or Full
Some Evidence of Disease Reduced
70% Reduced Unable Normal Job/Work Full Normal or Full
Significant Disease Reduced
60% Reduced Unable Hobby/Housework Occasional Normal or Full or Confusion
Significant Disease Assistance Reduced
50% Mainly Sit/Lie Unable to do Any Work Considerable Normal or Full or Confusion
Extensive Disease Assistance Req'd Reduced
40% Mainly in Bed Unable to do Most Activity Mainly Assistance Normal or Full or Drowsy;
Extensive Disease Reduced +/- Confusion
30% Totally Bed Unable to do Any Activity Total Care Normal or Full or Drowsy;
Bound Extensive Disease Reduced +/- Confusion
20% Totally Bed Bound Unable to do Any Activity Total Care Minimal to Full or Drowsy;
Extensive Disease Sips +/- Confusion
10% Totally Bed Bound Unable to do Any Activity Total Care Mouth Care Drowsy or Coma;
Extensive Disease Only +/- Confusion
0%
PPS Score Level:
Palliative Performance Score Response
Palliative Performance Score Response: 40%
Physical Exam
-
General: Well Nourished
Neuro: Awake and Alert
Psych: Agitated and Anxious
[2024-08-03] MEDS: NOVOLOG FLEXPEN SC (12:53)
[2024-08-03] MEDS: NOVOLOG FLEXPEN-MODERATE RESISTANCE SC (12:54)
--- NOTE | 2024-08-03 14:50 | W.PN.ID1 ---
Date of Service
Date of Service: August 03, 2024
Today's Communication
Follow-up antibiotics. Await bone biopsy of left ischium
Assessment / Plan
Left Buttock Wound- Osteomyelitis
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
Hx of CVA
Severe PAD s/p B/L AKA
IDDM
Tobacco Use
Recommendations:
-Afebrile, WBC within normal limits
- CT Abd 07/29: Chronic complete occusion of left common iliac and external iliac artery stents. Large 6.4 cm soft tissue wound in the Left inferomedial buttock extending deep into the left adductor muscle compartment and nearly to the level of the
left ischial tuberosity. Severe surrounding cellulitis.
- MRI Pelvis 07/30: No evidence for fistulous communication with the pelvic viscera. However, there is evidence for osteomyelitis of the left ischial tuberosity. No evidence for abscess.
- MRSA screen negative
- Antibiotics discontinued 07/31. For bone biopsy in approximately 48 hours.
- Will need further records from prior hospitals of ID workup.
- Monitor WBC count
- Continue local wound care management
����������������������������������������������������������
Subjective / Review of Systems
Review of Systems: No Fever and No Chills
Vital Signs / Physical Exam
Vital Signs
Vital Signs
Temp Pulse Resp BP Pulse Ox
98.6 F 69 18 133/98 99
08/03/24 08:13 08/03/24 08:13 08/03/24 08:13 08/03/24 08:13 08/03/24 10:50
Physical Exam
Constitutional: No Acute Distress, Comfortable, Chronically Ill, Non-toxic and Obese
Eyes: No Conjunctival Hemorrhage and Sclera Anicteric
Pulmonary: Non Labored
Extremities: Other (B/L AKA)
Wound: Other (ischial wound dressed.)
Neurological: Awake and Alert
Psychological: Calm
Objective Data
Lab Data
Lab Results
08/02/24 08:47
08/02/24 08:47
PT 13.2 Sec (11.4-14.6) 07/29/24 16:50
INR 0.95 07/29/24 16:50
APTT 34.6 Sec (23.4-35.0) 07/30/24 14:19
Estimated Creat Clear 73 ml/min 08/02/24 08:47
Total Bilirubin 0.3 mg/dl (0.2-1.3) 07/29/24 16:50
AST 17 U/L (14-36) 07/29/24 16:50
ALT 11 U/L (0-35) 07/29/24 16:50
Alkaline Phosphatase 83 U/L (38-126) 07/29/24 16:50
Most recent labs reviewed.
Micro Results:
07/31/24 08:50 MRSA Screen - Final
Nose No Methicillin Resistant Staphylococcus aureus isolated.
--- NOTE | 2024-08-03 14:58 | CM ---
Patient stated that she is thinking about signing AMA but is very upset about change in plan for testing. Patient to update CM about discharge planning needs.
PLan; AMA vs SNF vs home with VN; medical treatment plan in process
[2024-08-03 15:25] VITALS: BP 137/82
[2024-08-03 16:00] LABS: Glucose - Point of Care 220 mg/dl (70-99)
[2024-08-03] MEDS: NOVOLOG FLEXPEN-MODERATE RESISTANCE 3 UNITS SC (16:00)
[2024-08-03 16:52] LABS: Glucose - Point of Care 159 mg/dl (70-99)
[2024-08-03 21:18] LABS: Glucose - Point of Care 181 mg/dl (70-99)
[2024-08-03] MEDS: LANTUS 0.3 UNITS SC (22:26)
[2024-08-03] MEDS: LIPITOR 80 MG PO (22:27)
[2024-08-03 23:22] VITALS: BP 124/80
[2024-08-04] MEDS: MORPHINE SULFATE 2 MG IV ×6 (00:41→21:05)
[2024-08-04] MEDS: TYLENOL 650 MG PO ×4 (05:40→23:13)
[2024-08-04 08:47] LABS: Hematocrit 38.8 % (37.0-47.0); Hemoglobin 12.3 g/dL (12.0-16.0); Mean Corp Hgb Conc. 31.7 g/dL (33.0-37.0); Mean Corpuscular Hgb 30.3 pg (27.0-31.0); Mean Corpuscular Volume 95.6 fL (81.0-99.0); Mean Platelet Volume 9.5 fL (7.4-10.4); Platelet Count 222 10^3/uL (130-400); Red Blood Cell Count 4.06 10^6/uL (4.20-5.40); Red Cell Dist. Width 13.8 % (11.5-14.5); White Blood Cell Count 7.8 10^3/uL (4.8-10.8)
[2024-08-04 08:51] LABS: Glucose - Point of Care 204 mg/dl (70-99)
[2024-08-04] MEDS: NEURONTIN 600 MG PO ×3 (08:51→20:55)
[2024-08-04] MEDS: GLUCOPHAGE 500 MG PO ×2 (08:52→17:10)
[2024-08-04] MEDS: PROTONIX 40 MG PO (08:52)
[2024-08-04] MEDS: NOVOLOG FLEXPEN 10 UNITS SC ×3 (08:55→17:19)
[2024-08-04] MEDS: NOVOLOG FLEXPEN-MODERATE RESISTANCE 3 UNITS SC ×2 (08:55→12:43)
[2024-08-04 08:59] VITALS: BP 106/73
[2024-08-04 09:05] LABS: Blood Urea Nitrogen 22 mg/dl (7-17); Calcium 8.7 mg/dl (8.4-10.2); Carbon Dioxide 22 mmol/L (22-30); Chloride 103 mmol/L (98-107); Estimated Creatinine Clearance 73 ml/min; Glucose 201 mg/dl (70-99); Potassium 4.8 mmol/L (3.5-5.1); Sodium 136 mmol/L (135-145); eGFR > 60.00
--- NOTE | 2024-08-04 09:13 | PN.DE.MGMTRT ---
Insulin Management
- -
08/04/2024 Diabetes Management F/follow up
44 year old female w/multiple hospitalizations, well know to me from her recent hosp stay. P/W worsening lower abdominal wall cellulitis.
PMH: CVA, TIA, PE on Eliquis, impaired vision left eye, B/L AKA- wheel chair bound, Obesity, Smoker, HC, T2DM, requiring insulin, Diabetic Neuropathy.
Patient went to [place] ED for pain in L buttock, she requested transfer to . Arrived in ED c/o left buttock pain. PMH DVT, PE, bilat AKA, uncontrolled diabetes, current smoker, HLD. Patient know to diabetes team from frequent admissions in
the past. Prior to admission she states she took Lantus 30 units @ hs with 500 mg Metformin BID. She is adamant she did not take NovoLog AC AND WON'T. She states she takes 30 units Lantus @ hs and metformin 500 mg BID, AND THATS IT. A1C 12.2%, Cr
.8, eGFR >60.
Patient is awake, alert, agitated, angry, unwilling to participate in discussion regarding diabetes mgt.
08/03 Diet was changed to regular by Dr. Alan. Of note, has been taking her insulin as ordered. NPO for bone bx 08/03 but was cancelled.
08/04 Glucose range 159 to 204 fasting today. Will discuss with patient increasing hs lantus and continue AC novolog 10, patient not receptive at this time.
Will follow and discuss with patient tomorrow.
Diabetes History
- -
Type of Diabetes: 2 requiring insulin
Pre-Admission Diabetes Regimen
08/04/24
08:24
Creatinine 0.8
Lab Results
Hemoglobin A1c 12.2 % (4.0-5.6) H 07/29/24 13:57
Insulin Pump Settings
IP Diabetes Regimen
08/03/24 08/03/24 08/03/24
15:58 16:51 21:16
Glucose
POC Glucose 220 H 159 H 181 H
08/04/24 08/04/24
08:24 08:50
Glucose 201 H
POC Glucose 204 H
Meal type: Lunch
Amount consumed: 100%
Patient Education
--- NOTE | 2024-08-04 10:06 | PN.CDI ---
CDI
- -
CDI:
Physician Documentation Request
Admit Date: 07/29/24 11:49
Dear Doctor Richard,
Please review the following and provide your response in the progress notes.
Clinical Indicators:
Pelvis MRI, 07/30
#IMPRESSION:
#Large left buttock wound.
#...This tracks anteriorly and medially into the left side of the perineum, as detailed above. #...There is no evidence for fistulous communication with the pelvic viscera.
#...there is evidence for osteomyelitis of the left ischial tuberosity.
#...No evidence for abscess.
PN, 08/03
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
Please include further specificity regarding the type of Osteomyelitis, including the specific site with laterality...
Acute on chronic left pelvis(left ischial tuberosity) osteomyelitis
Chronic left pelvis(left ischial tuberosity) osteomyelitis
Other, please specify
Use of terms such as suspected, likely, concern for, or probable (associated with a specific diagnosis that is being evaluated, monitored, or treated as if it exists) are acceptable and can be coded in the inpatient setting, when documented at the
time of discharge.
Thank you,
Brea Roque RN BSN CCDS
CDI Specialist
please contact via tiger text
Please use your independent medical judgment in providing your response.
--- NOTE | 2024-08-04 12:04 | W.PN.PAL2 ---
Today's Communication
-
Patient not interested in palliative care follow up as inpatient or outpatient at this time.
Objective Data
-
Objective Data:
Vital Signs
Temp Pulse Resp BP Pulse Ox
98.2 F 69 17 106/73 100
08/04/24 08:59 08/04/24 08:59 08/04/24 08:59 08/04/24 08:59 08/04/24 08:59
Laboratory Results
08/04/24 08:24
08/04/24 08:24
PT 13.2 Sec (11.4-14.6) 07/29/24 16:50
INR 0.95 07/29/24 16:50
APTT 34.6 Sec (23.4-35.0) 07/30/24 14:19
Hemoglobin A1c 12.2 % (4.0-5.6) H 07/29/24 13:57
Total Protein 6.4 g/dl (6.3-8.2) 07/29/24 16:50
Albumin 3.2 g/dl (3.5-5.0) L 07/29/24 16:50
Palliative Performance Scale
Palliative Performance Scale:
PPS Level Ambulation Activity & Evidence of Disease Self Care Intake Conscious Level
100% Full Normal Activity & Work; Full Intake Full
No Evidence of Disease
90% Full Normal Activity & Work; Full Normal Full
Some Evidence of Disease
80% Full Normal Activity with Effort Full Normal or Full
Some Evidence of Disease Reduced
70% Reduced Unable Normal Job/Work Full Normal or Full
Significant Disease Reduced
60% Reduced Unable Hobby/Housework Occasional Normal or Full or Confusion
Significant Disease Assistance Reduced
50% Mainly Sit/Lie Unable to do Any Work Considerable Normal or Full or Confusion
Extensive Disease Assistance Req'd Reduced
40% Mainly in Bed Unable to do Most Activity Mainly Assistance Normal or Full or Drowsy;
Extensive Disease Reduced +/- Confusion
30% Totally Bed Unable to do Any Activity Total Care Normal or Full or Drowsy;
Bound Extensive Disease Reduced +/- Confusion
20% Totally Bed Bound Unable to do Any Activity Total Care Minimal to Full or Drowsy;
Extensive Disease Sips +/- Confusion
10% Totally Bed Bound Unable to do Any Activity Total Care Mouth Care Drowsy or Coma;
Extensive Disease Only +/- Confusion
0%
PPS Score Level:
[2024-08-04 12:41] LABS: Glucose - Point of Care 226 mg/dl (70-99)
--- NOTE | 2024-08-04 14:33 | W.PN.HOSP.TC ---
Addendum entered and electronically signed by Rony Ramos DO, Resident 08/05/24 13:32:
Chronic left pelvis osteomyelitis with unstageable wound likely secondary to multifactorial causes including uncontrolled diabetes.
Addendum entered and electronically signed by Brea Yadav MD 08/04/24 19:27:
No further surgical debridement recommended by colorectal surgery
Wound care last saw patient on 07/29, order placed for reevaluation
Vanco and Zosyn were stopped by ID and recommendations were made for bone biopsy completion prior to initiation of antibiotics. Patient will be n.p.o. after midnight and continue to hold Eliquis until bone biopsy 08/05
Patient restarted on opioid management for pain. Morphine and oxycodone as needed.
I saw and evaluated the patient independently. I reviewed the resident�s note and agree with findings and plan as documented by Dr. Ramos.
GENERAL: chronically ill appearing female in no apparent distress--calmer today but dismissive
HEENT: NC/AT
HEART: regular rate and rhythm, +S1, +S2
LUNGS : clear to auscultation bilaterally
ABDOM: soft, nontender, nondistended, + bowel sounds
EXT: no cyanosis, clubbing, or edema--bilateral AKA
NEUROLOGIC: grossly intact
Chronic left pelvis (left ischial tuberosity) osteomyelitis with unstageable wound (POA)--apprec wound care--trying to obtain bone biopsy (holding abx until culture obtained) but Eliquis not held and pt not NPO so biopsy was canceled--very upset and
threw a full bedside commode at the nurse, dedrick palma called--pt cursing and using f words throughout my conversation with her--told pt she is free to leave but would be AMA--so far pt staying for biopsy--apprec ID, IR--pain control
Left aortoiliac occlusion and PAD/History of bilateral AKA's--CT scan with chronic complete occlusion of the left common iliac and external iliac arteries (apprec vascular, no intervention possible)--holding Eliquis for biopsy
diabetes mellitus type 2--A1c 12.2%--not controlled--pt wants her own diet--apprec DM INVESTMENTS MANAGER--cont Lantus/premeal Novolog/metformin--SSI and accuchecks
history of DVT and PE--Transition from heparin gtt, now on Eliquis (holding as above)
history of CVA--Continue statin--Continue Eliquis
mood lability--Psych consulted but patient refused evaluation
CODE status -- FULL CODE
DVT proph
Original Note:
Today's Communication/Plan
-
.
Assessment / Plan
Assessment / Plan
44yo F with PMH DVT/PE, CVA, severe PAD s/p bilateral AKA, type 2 diabetes, tobacco use, hyperlipidemia who presented to [facility] [place] ED 07/27/24 for worsening left buttocks pain.
1. Left aortoiliac occlusion and PAD /History of bilateral AKA's
CT and MRI report below
Per vascular consultation, no interventional possible due to left iliac system
Transitioned patient from heparin to Eliquis (history of DVT/PE)
Patient restarted on opioid management for pain. Morphine and oxycodone as needed.
2. Chronic left pelvis(left ischial tuberosity) osteomyelitis with unstageable wound
No further surgical debridement recommended by colorectal surgery
Consult placed for wound care for further evaluation of right and left buttock wound
Vanco and Zosyn were stopped by ID and recommendations were made for bone biopsy completion prior to initiation of antibiotics. Patient will be n.p.o. after midnight and continue to hold Eliquis until bone biopsy tomorrow
Patient restarted on opioid management for pain. Morphine and oxycodone as needed.
3. diabetes mellitus type 2
A1c 12.2%
Continue Lantus/premeal Novolog/metformin
SSI and accuchecks
natural resources extension educator following
4.history of DVT and PE
Transition from heparin gtt, now on Eliquis
5.history of CVA
Continue statin
Continue Eliquis
6.mood lability
Psych consulted but patient refused evaluation
FULL/Eliquis
-----
CT A/P:
1. CHRONIC COMPLETE OCCLUSION of LEFT COMMON ILIAC and EXTERNAL ILIAC ARTERY STENTS.
2. Complete occlusion of the left common femoral, proximal superficial femoral, and proximal profundus femoral arteries.
3. Complete occlusion of the right common femoral, proximal superficial femoral arteries, and profundus femoral arteries with reconstitution of the right profundus femoral artery.
4. Severe greater than 70% diameter stenosis of the origin of the inferior mesenteric artery.
5. Severe atherosclerotic plaque in the infrarenal abdominal aorta.
6. LARGE 6.4 cm SOFT TISSUE WOUND in the LEFT INFEROMEDIAL BUTTOCK extending deep into the left adductor muscle compartment and nearly to the level of the left ischial tuberosity. Severe surrounding cellulitis.
7. Severe chronic discogenic degenerative disease at L5/S1.
8. Grade 2 anterolisthesis of L5 on S1 secondary to bilateral L5 pars interarticularis spondylolysis.
9. Multiple calcified hepatic granulomas.
10. Interval enlargement of a 1.5 cm left retroperitoneal lymph node.
11. Retained contrast material in the kidneys and urinary bladder with suggestion of renal insufficiency.
12. Mild splenomegaly.
13. Moderate size left anterior abdominal wall fat-containing hernia.
MRI pelvis: Large left buttock wound. This tracks anteriorly and medially into the left side of the perineum, as detailed above. There is no evidence for fistulous communication with the pelvic viscera. However, there is evidence for osteomyelitis
of the left ischial tuberosity. No evidence for abscess.
Anticipated Discharge: > 48 hours
Subjective/Interval History
-
Date of Service: August 04, 2024
44yo F with PMH DVT/PE, CVA, severe PAD s/p bilateral AKA, type 2 diabetes, tobacco use, hyperlipidemia who presented to [place] [facility] ED 07/27/24 for worsening left buttocks pain. Due to established care at [facility], she refused care at
[facility] and presented here. Per vascular consultation, no invasive therapy will be offered. Per colorectal surgery, no further debridement of wound will be offered. Today in conversation, initially patient felt that pain was well-controlled
however feels that at times pain is exacerbated when she is sitting for extended periods of time. She also feels some tenderness/soreness in her buttock region. She continues to feel frustrated and overwhelmed with the process. Patient is planned
to get bone biopsy, but will need to be off of Eliquis for 48 hours prior to intervention tomorrow.
Objective Data
-
Labs:
Laboratory Results
08/04/24
08:24
WBC 7.8
Hgb 12.3
Hct 38.8
Plt Count 222
Sodium 136
Potassium 4.8
Chloride 103
Carbon Dioxide 22
BUN 22 H
Creatinine 0.8
Glucose 201 H
Calcium 8.7
Vital Signs:
Vital Signs
Temp Pulse Resp BP Pulse Ox
98.2 F 69 17 106/73 100
08/04/24 08:59 08/04/24 08:59 08/04/24 08:59 08/04/24 08:59 08/04/24 08:59
I&O
08/03/24 08/04/24 08/05/24
06:59 06:59 06:59
Intake Total 600 / 600 1440 / 1440
Output Total 0 / 0
Balance 600 / 600 1440 / 1440
Review of Systems
-
History Source: Patient
Constitutional: Reports No Symptoms
Respiratory: Reports No Symptoms
Cardiac: Reports No Symptoms
Abdomen/GI: Reports No Symptoms
Musculoskeletal: Reports Other (Discomfort near wound )
Psych: Reports Anxious
Physical Exam
-
General: Well Developed, Conversant and Other (Teary and frustrated)
HEENT: Normocephalic and Atraumatic
Respiratory: Clear to Auscultation
Cardiac: Regular Rhythm and S1/S2
GI: Soft, Nontender and Nondistended
Skin: Other (Left and right buttock wound)
Neuro: AO x 3
Psych: Depressed and Anxious
Data Reviewed
-
Labs: Labs Reviewed by me and Discussed with Physician
Old Records: Reviewed
[2024-08-04 16:06] VITALS: BP 108/73
--- NOTE | 2024-08-04 16:16 | CM ---
Patient seen at bedside with physicians. Patient stated that she was going to wait for the testing currently planned for tomorrow. CM will continue to follow for discharge planning needs.
plan; home with VN vs SNF
--- NOTE | 2024-08-04 17:11 | W.PN.ID1 ---
Date of Service
Date of Service: August 04, 2024
Today's Communication
Continue off antibiotics for today. Await bone biopsy.
Assessment / Plan
Left Buttock Wound- Osteomyelitis
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
Hx of CVA
Severe PAD s/p B/L AKA
IDDM
Tobacco Use
Recommendations:
-Afebrile, WBC within normal limits
- MRSA screen negative
- Antibiotics discontinued 07/31. For tentative bone biopsy tomorrow
- Monitor WBC count
- Continue local wound care.
Further recommendations as additional data is returned.
����������������������������������������������������������
Chief Complaint
-: Other (Osteomyelitis)
Subjective / Review of Systems
Review of Systems: No Fever and No Chills
Vital Signs / Physical Exam
Vital Signs
Vital Signs
Temp Pulse Resp BP Pulse Ox
98.8 F 76 19 108/73 99
08/04/24 16:06 08/04/24 16:06 08/04/24 16:06 08/04/24 16:06 08/04/24 16:06
Physical Exam
Constitutional: No Acute Distress, Comfortable, Chronically Ill, Non-toxic and Obese
Eyes: No Conjunctival Hemorrhage and Sclera Anicteric
Pulmonary: Non Labored
Extremities: Other (B/L AKA)
Wound: Other (ischial wound dressed.)
Neurological: Awake and Alert
Psychological: Calm
Objective Data
Lab Data
Lab Results
08/04/24 08:24
08/04/24 08:24
PT 13.2 Sec (11.4-14.6) 07/29/24 16:50
INR 0.95 07/29/24 16:50
APTT 34.6 Sec (23.4-35.0) 07/30/24 14:19
Estimated Creat Clear 73 ml/min 08/04/24 08:24
Total Bilirubin 0.3 mg/dl (0.2-1.3) 07/29/24 16:50
AST 17 U/L (14-36) 07/29/24 16:50
ALT 11 U/L (0-35) 07/29/24 16:50
Alkaline Phosphatase 83 U/L (38-126) 07/29/24 16:50
Most recent labs reviewed.
Micro Results:
07/31/24 08:50 MRSA Screen - Final
Nose No Methicillin Resistant Staphylococcus aureus isolated.
Imaging:
- CT Abd 07/29/2024: Chronic complete occusion of left common iliac and external iliac artery stents. Large 6.4 cm soft tissue wound in the Left inferomedial buttock extending deep into the left adductor muscle compartment and nearly to the level of
the left ischial tuberosity. Severe surrounding cellulitis.
- MRI Pelvis 07/30/2024: No evidence for fistulous communication with the pelvic viscera. However, there is evidence for osteomyelitis of the left ischial tuberosity. No evidence for abscess.
[2024-08-04 17:19] LABS: Glucose - Point of Care 130 mg/dl (70-99)
[2024-08-04] MEDS: NOVOLOG FLEXPEN-MODERATE RESISTANCE SC (17:19)
[2024-08-04] MEDS: LIPITOR 80 MG PO (20:55)
[2024-08-04 21:00] LABS: Glucose - Point of Care 125 mg/dl (70-99)
[2024-08-04] MEDS: LANTUS 0.15 UNITS SC (21:27)
--- NOTE | 2024-08-04 21:43 | PTCARENOTE ---
Pt agitated and verbally abusive to staff, threw BSC down and tray/beverages to floor multiple times this shift. Security and Nsg elevator supervisor made aware and spoke to pt. Pt currently cooperative.
--- NOTE | 2024-08-04 23:58 | PTCARENOTE ---
Pt refuses vital signs at this time despite multiple explanations of importance of tracking pt's vital signs.
[2024-08-05] MEDS: MORPHINE SULFATE 2 MG IV ×4 (01:01→14:10)
[2024-08-05] MEDS: TYLENOL 650 MG PO ×2 (05:01→14:19)
[2024-08-05 07:00] VITALS: BP 144/85
--- NOTE | 2024-08-05 07:45 | W.PN.HOSP.TC ---
Addendum entered and electronically signed by Brea Yadav MD 08/05/24 19:15:
chronic left pelvis (left ischial tuberosity) osteomyelitis with unstageable wound due to Multifactorial, diabetes mellitus type 2 and PAD
Original Note:
Today's Communication/Plan
-
.
Assessment / Plan
Assessment / Plan
44yo F with PMH DVT/PE, CVA, severe PAD s/p bilateral AKA, type 2 diabetes, tobacco use, hyperlipidemia who presented to [place] ED 07/27/24 for worsening left buttocks pain.
1. Left aortoiliac occlusion and PAD /History of bilateral AKA's
CT and MRI report below
Per vascular consultation, no interventional possible due to left iliac system
Transitioned patient from heparin to Eliquis (history of DVT/PE)
Patient restarted on opioid management for pain. Morphine and oxycodone as needed.
2. Chronic left pelvis(left ischial tuberosity) osteomyelitis with unstageable wound
Likely due to multifactorial causes, including uncontrolled diabetes
No further surgical debridement recommended by colorectal surgery
Consult placed for wound care for further evaluation of right and left buttock wound
Vanco and Zosyn were stopped by ID until after bone biopsy results return. Biopsy completed today at 11 AM
Patient restarted on opioid management for pain. Morphine and oxycodone as needed.
3. diabetes mellitus type 2
A1c 12.2%
Continue Lantus/premeal Novolog/metformin
SSI and accuchecks
senior automation engineer following
4.history of DVT and PE
Transition from heparin gtt, now on Eliquis
5.history of CVA
Continue statin
Continue Eliquis
6.mood lability
Psych consulted but patient refused evaluation
FULL/Eliquis
-----
CT A/P:
1. CHRONIC COMPLETE OCCLUSION of LEFT COMMON ILIAC and EXTERNAL ILIAC ARTERY STENTS.
2. Complete occlusion of the left common femoral, proximal superficial femoral, and proximal profundus femoral arteries.
3. Complete occlusion of the right common femoral, proximal superficial femoral arteries, and profundus femoral arteries with reconstitution of the right profundus femoral artery.
4. Severe greater than 70% diameter stenosis of the origin of the inferior mesenteric artery.
5. Severe atherosclerotic plaque in the infrarenal abdominal aorta.
6. LARGE 6.4 cm SOFT TISSUE WOUND in the LEFT INFEROMEDIAL BUTTOCK extending deep into the left adductor muscle compartment and nearly to the level of the left ischial tuberosity. Severe surrounding cellulitis.
7. Severe chronic discogenic degenerative disease at L5/S1.
8. Grade 2 anterolisthesis of L5 on S1 secondary to bilateral L5 pars interarticularis spondylolysis.
9. Multiple calcified hepatic granulomas.
10. Interval enlargement of a 1.5 cm left retroperitoneal lymph node.
11. Retained contrast material in the kidneys and urinary bladder with suggestion of renal insufficiency.
12. Mild splenomegaly.
13. Moderate size left anterior abdominal wall fat-containing hernia.
MRI pelvis: Large left buttock wound. This tracks anteriorly and medially into the left side of the perineum, as detailed above. There is no evidence for fistulous communication with the pelvic viscera. However, there is evidence for osteomyelitis
of the left ischial tuberosity. No evidence for abscess.
Anticipated Discharge: Within 24 hours
Subjective/Interval History
-
Date of Service: August 05, 2024
44yo F with PMH DVT/PE, CVA, severe PAD s/p bilateral AKA, type 2 diabetes, tobacco use, hyperlipidemia who presented to [place] ED 07/27/24 for worsening left buttocks pain. Plan for patient to have bone biopsy today with IR. Patient was kept
n.p.o. overnight and Eliquis was stopped on Friday 08/03. Today in conversation, patient was extremely agitated and angry. She was raising her voice and asked me to leave. During the day a dedrick palma was called after it was reported she threw a
commode at a staff member. Patient understands where she is, what procedure is being done, her options of utilizing a different hospital facility, her medical status and the implications of her behavior.
Objective Data
-
Vital Signs:
Vital Signs
Temp Pulse Resp BP Pulse Ox
98.8 F 76 19 108/73 99
08/04/24 16:06 08/04/24 16:06 08/04/24 16:06 08/04/24 16:06 08/04/24 16:06
I&O
08/04/24 08/05/24 08/06/24
06:59 06:59 06:59
Intake Total 1440 / 1440 1140 / 1140
Output Total 0 / 0 200 / 200
Balance 1440 / 1440 940 / 940
Review of Systems
-
Unable to obtain full review of systems at this time due to: Other (Patient refused)
Physical Exam
-
General: Other (Patient refused physical exam)
Data Reviewed
-
Old Records: Reviewed
[2024-08-05 07:54] LABS: Glucose - Point of Care 148 mg/dl (70-99)
[2024-08-05] MEDS: NOVOLOG FLEXPEN-MODERATE RESISTANCE SC (07:55)
[2024-08-05] MEDS: NOVOLOG FLEXPEN SC (07:55)
[2024-08-05] MEDS: GLUCOPHAGE PO (07:55)
[2024-08-05] MEDS: PROTONIX PO (07:59)
[2024-08-05] MEDS: NEURONTIN PO (07:59)
--- NOTE | 2024-08-05 08:36 | PN.DE.MGMTRT ---
Insulin Management
- -
08/05/2024 Diabetes Management follow up
44 year old female w/multiple hospitalizations, well know to me from her recent hosp stay. P/W worsening lower abdominal wall cellulitis.
PMH: CVA, TIA, PE on Eliquis, impaired vision left eye, B/L AKA- wheel chair bound, Obesity, Smoker, HC, T2DM, requiring insulin, Diabetic Neuropathy.
Patient went to [place] ED for pain in L buttock, she requested transfer to . Arrived in ED c/o left buttock pain. PMH DVT, PE, bilat AKA, uncontrolled diabetes, current smoker, HLD. Patient know to diabetes team from frequent admissions in
the past. Prior to admission she states she took Lantus 30 units @ hs with 500 mg Metformin BID. She is adamant she did not take NovoLog AC AND WON'T. She states she takes 30 units Lantus @ hs and metformin 500 mg BID, AND THATS IT. A1C 12.2%, Cr
.8, eGFR >60.
Patient is awake, alert, agitated, angry, Code Purple called for patients aggressive behavior. I did not physically enter patients room due to code purple. For bone biopsy today
08/04 Glucose range 125 to 226. Will discuss with patient increasing hs lantus and continue AC novolog 10, patient not receptive at this time.
08/05 HS lantus reduced to 15 units @ HS due to procedure this AM, fasting glucose this AM 148. Will continue current regimen 500 mg metformin BID with 10 units novolog AC, moderate corrective AC and 30 units lantus to resume @ hs tonight.
Will follow.
Diabetes History
- -
Type of Diabetes: 2 requiring insulin
Pre-Admission Diabetes Regimen
08/04/24
08:24
Creatinine 0.8
Lab Results
Hemoglobin A1c 12.2 % (4.0-5.6) H 07/29/24 13:57
Insulin Pump Settings
IP Diabetes Regimen
08/04/24 08/04/24 08/04/24
08:24 08:50 12:39
Glucose 201 H
POC Glucose 204 H 226 H
08/04/24 08/04/24 08/05/24
17:18 20:59 07:53
Glucose
POC Glucose 130 H 125 H 148 H
Meal type: Breakfast
Amount consumed: 100%
Patient Education
--- NOTE | 2024-08-05 08:58 | PN.CDI ---
CDI
- -
CDI:
Physician Documentation Request
Admit Date: 07/29/24 11:49
Dear Doctor Richard,
Please review the following and provide your response in the progress notes.
Clinical Indicators:
PN, 08/04
#Chronic left pelvis (left ischial tuberosity) osteomyelitis with unstageable wound (POA)--
#Left aortoiliac occlusion and PAD/History of bilateral AKA's
#...--CT scan with chronic complete occlusion of the left common iliac
#...and external iliac arteries (apprec vascular, no intervention possible)
#...--holding Eliquis for biopsy
#diabetes mellitus type 2--A1c 12.2%--not controlled....
Based on the above and your clinical assessment, please clarify the etiology of the chronic left ischial tuberosity osteomyelitis and....:
Multifactorial, diabetes mellitus type 2 and PAD
Diabetes mellitus type 2, only
PAD, only
Other (please specify)
Use of terms such as suspected, likely, concern for, or probable (associated with a specific diagnosis that is being evaluated, monitored, or treated as if it exists) are acceptable and can be coded in the inpatient setting, when documented at the
time of discharge.
Thank you,
Brea Roque RN BSN CCDS
CDI Specialist
please contact via tiger text
Please use your independent medical judgment in providing your response.
--- NOTE | 2024-08-05 10:00 | PTCARENOTE ---
Patient was heard screaming obsenities to a pct in the room. Upon entering room, patient took her commode and threw it and yelled 'there you say I'm throwing things, there you go'. Commode moved out of reach and explained firmly to patient that she
cannot throw items in particular whether directly at the staff or when staff is in the room. After commode removed she shifted her body to the edge of the bed and said 'Ok so now im going to S all over the floor and you can clean it up. Firmly
explained as well that any verbal assault on staff will result in them exiting room until she stops. Code Purple called due to patients increased and continued aggressive behaviors. Continued screaming obsenities and would not allow Director,
Rn Digestive manual control auger press operator, child care director and others to speak. She did allow one customer service security officer to sit with her. Dr. Kauffman to the floor and attempting to speak to patient. [facility] sitter put in place for patient safety.
[2024-08-05 11:07] VITALS: BP 113/65; BP_SYST 76
[2024-08-05 13:10] VITALS: BP 105/66; BP_SYST 65
[2024-08-05 14:10] LABS: Glucose - Point of Care 171 mg/dl (70-99)
[2024-08-05] MEDS: NOVOLOG FLEXPEN 10 UNITS SC (14:18)
[2024-08-05] MEDS: NOVOLOG FLEXPEN-MODERATE RESISTANCE 1 UNITS SC (14:18)
--- NOTE | 2024-08-05 14:32 | VNURNOTE ---
[facility] liaison attempted to meet with patient again at bedside. Attempted to explain [facility] services. Patient yelled 'I'm tired of answering the same questions, I already told Chantelle!' Explained to patient that CM requested liaison to meet with
patient. Started to inform patient that VN would need to call her prior to visits to schedule. Politely inquired how we could reach her. Patient started to get agitated stating she doesn't have a cell phone or home phone. This author asked how
VN would be able to reach her as our policy. Patient started yelling obscenities, not allowing this author to talk or explain anything further. Nurse by scar as witness.
Patient does not appear to be cooperative enough for [facility] to be able to perform safe, complete visits at home. Additionally, not able to gather enough info at this time to determine how visits would be set up or how home care & teaching would
occur. ROMAN Lockhart updated. No referral at this time.
--- NOTE | 2024-08-05 14:40 | CM ---
Patient seen at bedside with physicians. Patient given IMM and was transported to procedure. Patient declined to meet with [facility] liaison to review options for treatment at home. Patient requesting to talk to CM and CM will review options. Patient
indicated that the phone ordered for her by a prior CM is not the right one. and requesting CM order the correct phone. CM unable to obtain any notes regarding order and patient will not provide phone at this time to contact owen. CM will return
to meet with patient.
Plan; home with VN vs SNF pending medical treatment plan
--- NOTE | 2024-08-05 16:35 | W.PN.UPDATE ---
Update Note
Progress Note Update
Met with patient earlier today (refused to let me examine her). I believe she has capacity to make medical decisions since she told me ' how could I have thrown water at a nurse when I am n.p.o. for a biopsy after midnight. I am a diabetic and you
are making me wait until 3 PM for this biopsy.' She also told me ' I do not want to be at this hospital. I only came here because my vascular surgeons are here. There are many other hospitals I could go to. I do not care whether I am banned from
this hospital or not.' She proceeded to gray and marianela at my resident team, at which point I removed them from her room and relieved them from seeing her moving forward.
Case management and myself came back to talk with her again later in the afternoon. She told us that she wants to leave the hospital now. I tried to explain that this would be Against Medical Advice and started to tell her what her risks would be.
She said, ' I know my fucking rights. I do not want to be in this [facility]. I do not need an asshole doctor to tell me anything. There are medical people in my family. Do you think I am stupid? I can refuse visiting nurses if I want to.
That is my right.'. When I told her that, by law, I needed to tell her the risks of leaving against medical advice, she started screaming 'fuck you' and started throwing things around the room. A code purple was called. Security accompanied me
back into the room with the AMA paper at which time I told her the risk of sepsis, bloodstream infection, and . She took the form, put it in her mouth and tore it up with her teeth and threw the paper remnants around the room. This was
witnessed by security, 4th linoleum floor layer, and 2 nurse educators.
Shortly thereafter, she put her butt over the bed and proceeded to urinate and defecate all over the floor. Ambulance transfer is being set up to take the patient home as she is a bilateral above knee amputee.
--- NOTE | 2024-08-05 16:50 | CM ---
Addendum entered by Chantelle Ernst 08/06/24 16:23:
CM spoke with Rama Lainez, with [facility] [phone]. CM will fax discharge summary to fax listed.
Addendum entered by Chantelle Ernst 08/05/24 17:46:
CM placed a call to [facility] for protective services assessment. vm left
Addendum entered by Chantelle Ernst 08/05/24 17:06:
no phone in box given to CM by patient, patient told and she stated I don't want that F' in piece of ....'. Patient refused box with empty case.
Original Note:
Patient seen and patient stated that she wanted to leave. Patient spoke with ID physician and again stated she wanted to leave. Patient demanded assistance to return a cell phone but no cell phone in box. Patient cursed at all staff and Hospitalist
indicated that patient was given AMA forms and did not sign them. Patient refused VN x3 last time stated; F your VN. CM ambulance arranged for transfer home. CM will call to [facility] with referral for assessment of need. CM will
continue to follow for discharge planning needs.
Plan; home with no VN at patient demand
--- NOTE | 2024-08-05 16:51 | W.PN.ID1 ---
Date of Service
Date of Service: August 05, 2024
Today's Communication
Await biopsy cultures
Assessment / Plan
Left Buttock Wound with osteomyelitis noted on MRI
- s/p bx
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
Hx of CVA
Severe PAD s/p B/L AKA
IDDM
Tobacco Use
Recommendations:
-Afebrile, WBC within normal limits
- MRSA screen negative
Antibiotics discontinued 07/31. S/p bone biopsy today.
At this point in time we will await bone cultures.
Patient is demanding discharge. I had a long discussion with her regarding further options. While waiting for cultures, it is not necessary to remain in the hospital, but I noted that if the cultures were positive, and IF she desired treatment for
the underlying osteomyelitis, she likely would need to return to the hospital. She states understanding this, but also notes that she is not likely to come back to the hospital.
Continue local wound care.
Currently a difficult situation, as patient has had multiple episodes of marked belligerence which has become a barrier to care.
Additionally, she maintains an hemoglobin A1c around 12 which markedly limits the ability to fight infection.
Even with intensive therapy (both wound care and potentially antibiotic therapy) overall outlook appears poor given her multiple comorbidities.
Patient may be leaving A.
����������������������������������������������������������
Chief Complaint
-: Other (Osteomyelitis, left ischial osteomyelitis)
Subjective / Review of Systems
Patient seen and examined. She is status post left ischial biopsy.
Review of Systems: No Fever and No Chills
Vital Signs / Physical Exam
Vital Signs
Vital Signs
Temp Pulse Resp BP Pulse Ox
98.1 F 65 12 105/66 100
08/05/24 13:10 08/05/24 13:10 08/05/24 13:10 08/05/24 13:10 08/05/24 13:10
Physical Exam
Constitutional: Chronically Ill, Non-toxic and Obese
Eyes: No Conjunctival Hemorrhage and Sclera Anicteric
Pulmonary: Non Labored
Extremities: Other (B/L AKA)
Wound: Other (ischial wound dressed.)
Neurological: Awake and Alert
Psychological: Agitated (Screaming out expletives at the staff; throwing hospital phone and other objects)
Objective Data
Lab Data
Lab Results
08/04/24 08:24
08/04/24 08:24
PT 13.2 Sec (11.4-14.6) 07/29/24 16:50
INR 0.95 07/29/24 16:50
APTT 34.6 Sec (23.4-35.0) 07/30/24 14:19
Estimated Creat Clear 73 ml/min 08/04/24 08:24
Total Bilirubin 0.3 mg/dl (0.2-1.3) 07/29/24 16:50
AST 17 U/L (14-36) 07/29/24 16:50
ALT 11 U/L (0-35) 07/29/24 16:50
Alkaline Phosphatase 83 U/L (38-126) 07/29/24 16:50
Most recent labs reviewed.
Micro Results:
08/05/24 12:35 Tissue Culture - Pending
Bone Gram Stain - Preliminary
07/31/24 08:50 MRSA Screen - Final
Nose No Methicillin Resistant Staphylococcus aureus isolated.
Imaging:
- CT Abd 07/29/2024: Chronic complete occusion of left common iliac and external iliac artery stents. Large 6.4 cm soft tissue wound in the Left inferomedial buttock extending deep into the left adductor muscle compartment and nearly to the level of
the left ischial tuberosity. Severe surrounding cellulitis.
- MRI Pelvis 07/30/2024: No evidence for fistulous communication with the pelvic viscera. However, there is evidence for osteomyelitis of the left ischial tuberosity. No evidence for abscess.
Care Review
Plan reviewed with: Physician (Hospitalist)
--- NOTE | 2024-08-05 17:10 | PTCARENOTE ---
after calling dedrick palma for patient hrowing heavy items at staff, using inappropriate language and refusing care, patient left the hospital AMA. vitals were not obtained, due to patient's refusal. all belongings gathered and sent with the patient.
patient left with ambulance stretcher. unable to provide discharge instructions
--- NOTE | 2024-08-05 17:28 | PTCARENOTE ---
Patient heard yelling form hallway. Primary RN in room-patient yells 'get the fuck out of my room. Go back to [place]. We speak Bahamian here.' RN left room. Dr. Yadav and Chantelle Ernst in hallway- go in to see patient. patient
repeatedly states she 'want to go the fuck home', shouting over MD while MD tried to explain AMA process. 'I know my fucking rights' Dr. Juárez into meet with patient, patient yelling at MD-'You don't fucking understand' Dr. Yadav returned to
room to speak with patient about leaving-Patient increasingly agitated, throwing phone, commode with bucket and items from food tray-coffee and food all over room and floor. Code purple was called. Patient yelling derogatory terms at security,
staff and MD. With Security, MD and 2 RN's present patient agreeable to sign AMA paper-When handed the paper after being told risks by MD, patient put the form in her mouth and tore it up, throwing it all over the room. Patient still screaming she
wants to leave. Ambulance transport set up by . Patient defecated and urinated over the side of the bed, repeatedly stating 'I'm going to piss and shit all over your floor.' When finished, patient wiped herself throwing soiled wipes on the floor.
Sat back in bed. Patient agreeable for this RN to remove her IV access-site removed intact-no bleeding noted. Belongings gathered, given to patient, patient placed in personal bag. When asked about a michael, patient reports her apartment is 'unlocked
for medical reasons.' EMS attempted to explain that if the door was locked she would have to return tot hospital-patient states 'You can't fucking make a person do something they refuse to do.' Patient again reassured EMS that door would be
unlocked. Patient transferred self to stretcher-refusing assistance. Patient left unit with ambulance transport-security with her. Belongings sent with patient.
--- NOTE | 2024-08-05 19:41 | W.DCSUMMARY ---
Discharge Summary
Discharge Data
Date of Admission: 07/29/24
Date of Discharge: 08/05/24
-
Pending Results: Yes
Additional Pending Results:
culture and results of bone biopsy
Hospital Course
Primary care physician : Chandana Olivia
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
Chronic Discharge diagnosis : Left aorto iliac occlusion and peripheral arterial disease with history of bilateral above-knee amputations, type 2 diabetes mellitus uncontrolled with hemoglobin A1c of 12.2, history of deep venous thrombosis and
pulmonary embolism, history of stroke, mood lability
Hospital Course : Patient was a 44-year-old female with a history as noted above who was at [facility] on July 27, 2024 for worsening left buttock pain. She actually refused care at [facility] and requested transfer to [facility] because
her vascular surgeons are here. On the day of admission, she was agitated and cursing during the examination refusing to answer questions or engage in productive conversation. The admitting physician stated that she admitted to significant pain 10
out of 10 in the left buttock which has been there for 'more than a day'. Patient was angry at multiple questions by the admitting provider. Review of previous records by the admitting physician indicated a recent admission May 2024 at
[place] for right lower extremity cellulitis treated with linezolid and Levaquin and was unclear she finished her course of antibiotics. She also had a general history of noncompliance and was refusing some of her care feeling like she 'knows her
right to refuse'. There was also a documented history of necrotizing fasciitis that required surgery at [facility]. Patient was excepted in transfer here.
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 Patient was admitted with an unstageable wound which
was present on admission. Wound care was consulted. Infectious disease was consulted. Patient was initially started on antibiotics which were then stopped in anticipation for obtaining a bone biopsy for culture for more accurate antibiotic
choice. CAT scan of the abdomen pelvis and pelvis MRI were done and results are below. Colorectal surgery was consulted for the possibility of a fistula which was not present. No surgical intervention was offered. Patient was originally
scheduled for bone biopsy on August 03, 2024. However, patient did not have this due to the fact that her Eliquis was not on hold. Eliquis must be on hold for 48 hours and therefore she was scheduled for bone biopsy on August 05, 2024.
Patient was irate that she had to wait for her bone biopsy until August 05 stating in fact that we do not know what she is going through 'why should I have to wait here longer because you fucked up'. She did indeed have the bone biopsy and
results of that are pending at this time. Infectious disease did see the patient and was on consult. On the day of discharge, the infectious disease physician outlined the patient's options which were If cultures were positive and if she desired
treatment for osteomyelitis then she would need to return to the hospital. She stated understanding but noted that she would likely not come back. In addition, patient had been refusing certain aspects of care including vital signs throughout her
hospitalization.
Problem #2: Left aortoiliac occlusion and peripheral arterial disease with history of bilateral above-knee amputations. CAT scan as noted below shows complete occlusion of the left common iliac and external iliac arteries. Patient was seen in
consultation by vascular surgery and no intervention was possible. Eliquis was held for her bone biopsy.
Problem #3: Type 2 diabetes mellitus uncontrolled. Patient's hemoglobin A1c was found to be 12.2. She was seen in consultation by diabetic nurse practitioners for assistance. Patient unfortunately did not want to follow a diabetic diet and
demanded to have a regular diet. Uncontrolled blood sugars certainly will impact the possibility of wound healing.
Problem #4: All other medical issues. These include history of deep venous thrombosis and pulmonary embolism, history of stroke. These medical issues were stable during her hospitalization. Medications were continued as able.
Problem #5: Disposition. I met with patient earlier today (refused to let me examine her). I believe she has capacity to make medical decisions since she told me 'how could I have thrown water at a nurse when I am n.p.o. for a biopsy after
midnight. I am a diabetic and you are making me wait until 3 PM for this biopsy.' She also told me 'I do not want to be at this hospital. I only came here because my vascular surgeons are here. There are many other hospitals I could go to. I do
not care whether I am banned from this hospital or not.' She proceeded to gray and marianela at my resident team, at which point I removed them from her room and relieved them from seeing her moving forward.
Case management and myself came back to talk with her again later in the afternoon on the day of discharge. She told us that she wants to leave the hospital now. I tried to explain that this would be Against Medical Advice and started to tell her
what her risks would be. She said, ' I know my [facility] rights. I do not want to be in this [facility]. I do not need an asshole doctor to tell me anything. There are medical people in my family. Do you think I am stupid? I can refuse
visiting nurses if I want to. That is my right.'. When I told her that, by law, I needed to tell her the risks of leaving against medical advice, she started screaming 'fuck you' and started throwing things around the room. A code purple was
called. Security accompanied me back into the room with the AMA paper at which time I told her the risk of sepsis, bloodstream infection, and . She took the form, put it in her mouth and tore it up with her teeth and threw the paper remnants
around the room. This was witnessed by security, 4th floor and wall applier liquid, and 2 nurse educators.
Shortly thereafter, she put her butt over the bed and proceeded to urinate and defecate all over the floor. Ambulance transfer is being set up to take the patient home as she is a bilateral above knee amputee.
Patient has left the hospital AGAINST MEDICAL ADVICE.
Time for discharge was greater than 1 hour.
Important imaging findings :
CT ABDOMEN/PELVIS IMPRESSION:
1. CHRONIC COMPLETE OCCLUSION of LEFT COMMON ILIAC and EXTERNAL ILIAC ARTERY STENTS.
2. Complete occlusion of the left common femoral, proximal superficial femoral, and proximal profundus femoral arteries.
3. Complete occlusion of the right common femoral, proximal superficial femoral arteries, and profundus femoral arteries with reconstitution of the right profundus femoral artery.
4. Severe greater than 70% diameter stenosis of the origin of the inferior mesenteric artery.
5. Severe atherosclerotic plaque in the infrarenal abdominal aorta.
6. LARGE 6.4 cm SOFT TISSUE WOUND in the LEFT INFEROMEDIAL BUTTOCK extending deep into the left adductor muscle compartment and nearly to the level of the left ischial tuberosity. Severe surrounding cellulitis.
7. Severe chronic discogenic degenerative disease at L5/S1.
8. Grade 2 anterolisthesis of L5 on S1 secondary to bilateral L5 pars interarticularis spondylolysis.
9. Multiple calcified hepatic granulomas.
10. Interval enlargement of a 1.5 cm left retroperitoneal lymph node.
11. Retained contrast material in the kidneys and urinary bladder with suggestion of renal insufficiency.
12. Mild splenomegaly.
13. Moderate size left anterior abdominal wall fat-containing hernia.
PELVIS MRI IMPRESSION:
Large left buttock wound. This tracks anteriorly and medially into the left side of the perineum, as detailed above. There is no evidence for fistulous communication with the pelvic viscera. However, there is evidence for osteomyelitis of the left
ischial tuberosity. No evidence for abscess.
Discharge Plan
-
Patient Disposition: Against Medical Advice
Activity Restrictions/Additional Instructions:
Wound Care Instructions Sacrum- Clean with normal saline and pack with saline moistened gauze and cover with silicone border foam. Change daily and PRN if loose or soiled.
Recommend air surface
Follow up at wound care center call for an appointment.
Referrals:
Chandana Olivia DO [Family Provider] -
Prescriptions:
No Action
gabapentin [Neurontin] 600 MG tablet
600 mg PO TID 30 Days Qty: 90 0RF
metformin 500 mg tablet
500 mg PO BID@08,17 30 Days Qty: 60 0RF
atorvastatin 80 MG tablet
80 mg PO HS 30 Days Qty: 30 0RF
insulin aspart U-100 100 unit/mL (3 mL) Insulin Pen
10 unit SC AC Qty: 15 0RF
Insulin Glargine Lantus [Lantus] 28 UNITS
Subcutaneous Insulin Syringe [Syringe-Insulin] 0 UNIT
As Directed mls/hr SC HS
Ordered By: Noah Villagran DO
Last Taken: Unknown
oxycodone 5 mg Tablet
5 mg PO Q4HPRN PRN (Reason: moderate pain) Qty: 15 0RF
Patient Comments:
patient states she doesnt take at home
cephalexin 500 mg capsule
500 mg PO QID Qty: 30 0RF
Discharge Date and Time
Discharge Date/Time: 08/05/24 17:13
Print Language: BURKINAN
--- NOTE | 2024-08-06 10:29 | PTCARENOTE ---
Two bags of non perishable food dropped off on Ms. Macias porch in her apt. Call placed to notify patient but the call went to voice mail. Message left to look for food on porch.
== END 2024-08-05 17:13 | disposition left against medical advice (07) | DRG 628 ==
LOC: 4 WEST ACU 11:49
PROVIDERS: Internal Medicine; Radiology Vascular & Interventional Radiology; Student in an Organized Health Care Education/Training Program; ADMITTING PHYSICIAN Internal Medicine; ATTENDING PHYSICIAN Internal Medicine; CONSULT PHYSICIAN Internal Medicine Hospice and Palliative Medicine; CONSULT PHYSICIAN Surgery Vascular Surgery; FAMILY PHYSICIAN Family Medicine; OTHER PHYSICIAN Internal Medicine Infectious Disease; OTHER PHYSICIAN Psychiatry & Neurology Psychiatry; OTHER PHYSICIAN Surgery
PROC: 0QB33ZX Excision of Left Pelvic Bone, Percutaneous Approach, Diagnostic (ICD-10-PCS; 2024-08-05)
DX: E11.69 Type 2 diabetes mellitus with other specified complication (principal); L89.324 Pressure ulcer of left buttock, stage 4; E11.52 Type 2 diabetes mellitus with diabetic peripheral angiopathy with gangrene; L02.31 Cutaneous abscess of buttock; T82.898A Other specified complication of vascular prosthetic devices, implants and grafts, initial encounter; I74.09 Other arterial embolism and thrombosis of abdominal aorta; I70.92 Chronic total occlusion of artery of the extremities; L03.317 Cellulitis of buttock; M86.652 Other chronic osteomyelitis, left thigh; I74.5 Embolism and thrombosis of iliac artery; I95.9 Hypotension, unspecified; E78.00 Pure hypercholesterolemia, unspecified; R45.1 Restlessness and agitation; E11.65 Type 2 diabetes mellitus with hyperglycemia; F43.20 Adjustment disorder, unspecified; K82.8 Other specified diseases of gallbladder; R60.9 Edema, unspecified; N32.89 Other specified disorders of bladder; I70.201 Unspecified atherosclerosis of native arteries of extremities, right leg; F43.10 Post-traumatic stress disorder, unspecified; M43.17 Spondylolisthesis, lumbosacral region; R16.1 Splenomegaly, not elsewhere classified; K42.9 Umbilical hernia without obstruction or gangrene; I25.10 Atherosclerotic heart disease of native coronary artery without angina pectoris; R45.86 Emotional lability; F17.200 Nicotine dependence, unspecified, uncomplicated; Y84.8 Other medical procedures as the cause of abnormal reaction of the patient, or of later complication, without mention of misadventure at the time of the procedure; Y92.9 Unspecified place or not applicable; Z86.73 Personal history of transient ischemic attack (TIA), and cerebral infarction without residual deficits; Z86.718 Personal history of other venous thrombosis and embolism; Z86.711 Personal history of pulmonary embolism; Z89.611 Acquired absence of right leg above knee; Z89.612 Acquired absence of left leg above knee; Z91.199 Patient's noncompliance with other medical treatment and regimen due to unspecified reason; Z79.84 Long term (current) use of oral hypoglycemic drugs; Z79.4 Long term (current) use of insulin; Z79.891 Long term (current) use of opiate analgesic; Z79.01 Long term (current) use of anticoagulants
CPT/HCPCS: 88305; 88307; 88311; 20225; 72197; 74174; 77012; 80048; 80053; 82947; 82962; 83036; 83735; 85025; 85027; 85610; 85730; 87070; 87176; 87205; 97162; 97167; A9575; Q9967